=== PATIENT | female | born 1950 | race Caucasian/White ===

== ENCOUNTER 2019-07-19 13:52 | Outpatient (CLI) | payer OTHER, SELFPAY ==
--- NOTE | ~2019-07-19 | MM_ITS ---
EXAMINATION: MM screening [facility] BI w kelli HISTORY: Screening mammogram TECHNIQUE: Craniocaudal and mediolateral oblique 3-D tomosynthesis images were obtained and synthetic 2-D images were generated. CAD analysis was submitted and interpreted. COMPARISON: Comparison to multiple prior studies sequentially, with oldest reviewed study dated 01/23. BREAST PARENCHYMAL COMPOSITION: There are scattered areas of fibroglandular density. FINDINGS: There is no evidence of suspicious mass, calcification, or architectural distortion to sugg est malignancy in either breast. There has been no suspicious interval change. IMPRESSION: 1. No mammographic evidence of malignancy. 2. Recommend routine screening mammography in one year. BI-RADS Category 1: Negative Reviewed, dictated and finalized at location A.
== END 2019-07-19 13:53 | disposition home or self-care (01) ==
PROVIDERS: PCP Family Medicine; Visit Provider Obstetrics & Gynecology
DX: Z12.31 Encounter for screening mammogram for malignant neoplasm of breast (principal)
CPT/HCPCS: 77063; 77067

== ENCOUNTER 2020-07-23 09:40 | Outpatient (CLI) | payer OTHER, SELFPAY ==
--- NOTE | ~2020-07-23 | MM_ITS ---
EXAMINATION: MM screening [facility] BI w kelli HISTORY: Screening TECHNIQUE: Craniocaudal and mediolateral oblique 3-D tomosynthesis images were obtained and synthetic 2-D images were generated. CAD analysis was submitted and interpreted. COMPARISON: Comparison to multiple prior studies sequentially, with oldest reviewed study dated 01/23. BREAST PARENCHYMAL COMPOSITION: There are scattered areas of fibroglandular density. FINDINGS: There is no evidence of suspicious mass, calcification, or architectural distortion to sugg est malignancy in either breast. There has been no suspicious interval change. IMPRESSION: 1. No mammographic evidence of malignancy. 2. Recommend routine screening mammography in one year. BI-RADS Category 1: Negative Reviewed, dictated and finalized at location A.
== END 2020-07-23 09:41 | disposition home or self-care (01) ==
LOC: ANHIMG 09:46
PROVIDERS: PCP Family Medicine; Visit Provider Obstetrics & Gynecology
DX: Z12.31 Encounter for screening mammogram for malignant neoplasm of breast (principal)
CPT/HCPCS: 77063; 77067

== ENCOUNTER 2020-08-13 11:10 | Outpatient (CLI) | payer OTHER, SELFPAY ==
--- NOTE | ~2020-08-13 | DEXA_ITS ---
Bone Density Report Name: Ranjana Corey Age: 70 Sex: Female Ethnicity: White Date of : 1950 Indication: postmenopausal; seizure disorder; hysterectomy; Referring Provider: Steve, Alberta Rizo Study: Bone densitometry was performed. Exam Date: August 13, 2020 Accession number: [id number] Bone Density: Region BMD T-score Z-score Classification AP Spine (L1-L4) 0.954 -0.8 1.2 Normal Femoral Neck (Left) 0.629 -2.0 -0.3 Osteopenia Total Hip (Left) 0.784 -1.3 0.1 Osteopenia Total Hip Bilateral Avg 0.797 -1.2 0.2 Osteopenia Femoral Neck (Right) 0.622 -2.0 -0.3 Osteopenia Total Hip (Right) 0.808 -1.1 0.3 Osteopenia World Health Organization criteria for BMD impression classify patients as: Normal (T-score at or above -1.0), Osteopenia (T-score between -1.0 and -2.5), or Osteoporosis (T-score at or below -2.5). 10-year Fracture Risk(1): Major Osteoporotic Fracture 12% Hip Fracture 2.1% Reported Risk Factors: [place] (), Neck BMD=0.622, BMI=25.8 (1) FRAX(R) Version 3.08. Fracture probability calculated for an untreated patient. Fracture probability may be lower if the patient has received treatment. Clinical Information Provided by Patient: Has the following medical conditions: Any Seizure Disorders, Hysterectomy Patient maximum height was 68 Menopause Age: 52 Drinks caffeinated beverages Onset of menses at age 14 Number of children 1 Impression: The patient has low bone mass, based on the Left Femoral Neck T-score. The patient has an estimated ten-year risk of hip fracture of 2.1% and an estimated ten-year risk of major fracture of 12%, based on the WHO FRAX algorithm. Discussion: BONE DENSITY IS LOW AT ONE OR MORE SKELETAL SITES. This patient's lowest T-score is low at one or more skeletal sites. It meets the World Health Organization's (WHO) criteria for ?low bone mass? (T-score between -1.0 and -2.5). The patient's 10-year risk of fracture as calculated by FRAX is less than the threshold where pharmacological therapy is recommended by the National Osteoporosis Foundation (NOF). However, all treatment decisions require clinical judgment and consideration of individual patient factors, including patient preferences, comorbidities, previous drug use, risk factors not captured in the FRAX model (e.g., frailty, falls, vitamin D deficiency, increased bone turnover, interval significant decline in bone density) and possible under or overestimation of fracture risk by FRAX. The patient should follow a healthful lifestyle (good nutrition with adequate calcium and vitamin D, and appropriate weight-bearing exercise). Follow-Up: Consider repeating this study in 2 to 3 years to reassess this patient's status, or sooner if there is some new clinical indication. Reported by: OSCAR on 08/13/2020 11:
== END 2020-08-13 11:11 | disposition home or self-care (01) ==
LOC: ANHIMG 11:14
PROVIDERS: PCP Family Medicine; Visit Provider Physician Assistant
DX: Z78.0 Asymptomatic menopausal state (principal); M85.851 Other specified disorders of bone density and structure, right thigh; M85.852 Other specified disorders of bone density and structure, left thigh
CPT/HCPCS: 77080

== ENCOUNTER 2020-08-26 12:47 | Emergency (ER) | payer OTHER, SELFPAY ==
[2020-08-26 14:46] VITALS: BP 151/100; PULSE 89; RESP 18; TEMP 36.6; O2SAT 100
--- NOTE | 2020-08-26 16:31 | PC.NURSE ---
Dr. Dumont at bedside for exam.
--- NOTE | 2020-08-26 16:36 | PC.NURSE ---
Pt refuses CT, requests that staff hurry up, I have to get home to my . He's home alone and he's diabetic .
--- NOTE | 2020-08-26 16:45 | ED.HEATRA ---
HPI - Head Injury General Chief complaint: Head Injury Stated complaint: Fall/HI Time Seen by Provider: 08/26/20 16:13 Source: patient and RN notes reviewed Mode of arrival: ambulatory Limitations: no limitations History of Present Illness HPI Narrative: Patient tripped and fell at 7 AM today at home, complaining of forehead laceration, denied loss of consciousness or other injuries. Patient also declined to get CAT scan of the head, last tetanus shot was 3 years ago, and patient would like to fix her laceration and go home immediately. Related Data Allergies Allergy/AdvReac Type Severity Reaction Status Date / Time aspirin Allergy Severe GI UPSET, Verified 08/26/20 15:43 STOMACH ULCERATION erythromycin base Allergy Severe SWELLING Verified 08/26/20 15:43 Penicillins Allergy Severe ANAPHALACTI Verified 08/26/20 15:43 C Sulfa (Sulfonamide Allergy Severe ANAPHALACTI Verified 08/26/20 15:43 Antibiotics) C tramadol Allergy Severe SWELLING Verified 08/26/20 15:43 promethazine Allergy Unknown Unknown Verified 08/26/20 15:43 Beta-Blockers AdvReac Severe BP PROBLEMS Verified 08/26/20 15:43 (Beta-Adrenergic Bloc sumatriptan AdvReac Severe BP SPIKE Verified 08/26/20 15:43 CHLORPROMAZINE HCL Allergy Severe THROAT Uncoded 08/26/20 15:43 CLOSED DIHYDROERGOTAMINE MESYLATE Allergy Severe THROAT Uncoded 08/26/20 15:43 CLOSED HYDROCODONE BIT Allergy Severe HIVES Uncoded 07/08/20 15:12 KETOROLAC TROMETHAMINE Allergy Severe BP SPIKE Uncoded 07/08/20 15:12 METOCLOPRAMIDE HCL Allergy Severe GI UPSET Uncoded 07/08/20 15:12 ONDANSETRON HCL Allergy Severe ANAPHALATIC Uncoded 07/08/20 15:12 PENTAZOCINE LACTATE Allergy Severe THROAT Uncoded 07/08/20 15:12 SWELLING SUMATRIPTAN SUCCINATE Allergy Severe BP SPIKE Uncoded 06/06/20 09:02 Review of Systems Review of Systems: Narrative: CONSTITUTIONAL: Denies fever, chills, or sweats. EYES: Denies visual changes, redness, or discharge. ENT: Denies rhinorrhea, congestion, sore throat, or otalgia. CARDIOVASCULAR: Denies chest pain, palpitations, or edema. RESPIRATORY: Denies cough or dyspnea. GASTROINTESTINAL: Denies abdominal pain, nausea, vomiting, or diarrhea. GENITOURINARY: Denies dysuria or hematuria. SKIN: Denies rash or itching. MUSCULOSKELETAL: Denies back pain, joint pain, or myalgia. NEUROLOGIC: Denies headache, numbness, or weakness. PSYCHIATRIC: Denies anxiety or depression. [facility] Family History Family History Father Family history of premature coronary heart disease, Onset Age: 75 Patient's father is Mother Cerebrovascular accident, Onset Age: 75 Social History Social History Smoking status: Never smoker Second hand tobacco smoke exposure: No Alcohol intake: never Substance use: never Substance use type: does not use Gender identity (if verbalized by the patient): Female Exam Narrative: Exam Narrative: General appearance: Well-developed, well-nourished Skin: Normal color, 2.5 vertical laceration at the forehead. Subcutaneous, no active bleeding, Head: Normocephalic, forehead laceration Eyes: Clear conjunctiva ENT: Oropharynx normal, ears normal, nose normal Neck: Supple, nontender Chest and respiratory: Airway patent, no respiratory distress, no accessory muscle use Heart: Regular rate/rhythm Abdomen: Soft, nontender, no organomegaly, quiet bowel sounds Vascular: Normal peripheral pulses, normal capillary refill. Musculoskeletal: Normal range of motion, nontender back Neurologic: Alert and oriented ?3, TUBING MACHINE OPERATOR is normal as tested, no gross motor deficit
== END 2020-08-26 16:55 | disposition home or self-care (01) ==
PROVIDERS: Emergency Provider Emergency Medicine; PCP Family Medicine
DX: S01.81XA Laceration without foreign body of other part of head, initial encounter (principal); W19.XXXA Unspecified fall, initial encounter; Y92.009 Unspecified place in unspecified non-institutional (private) residence as the place of occurrence of the external cause
CPT/HCPCS: 12011; 99283

== ENCOUNTER → 2020-10-04 12:54 | Outpatient (CLI) | payer OTHER, SELFPAY ==
--- NOTE | ~2020-10-04 | XR_ITS ---
EXAMINATION:XR cervical spine 4-5V DATE: 10/04/2020 13:59 INDICATION: Neck pain TECHNIQUE: AP, lateral, lateral swimmers and odontoid views of the cervical spine are provided. COMPARISON: None FINDINGS: Alignment is normal. The odontoid is intact. No fracture is identified. The vertebral body heights are maintained. There is mild loss of intervertebral disc space height at C4-5. There is mode rate multilevel facet and uncovertebral joint osteoarthritis. Prevertebral soft tissues are normal. IMPRESSION: 1. Mild cervical spondylosis without acute findings. Reviewed, dictated and finalized at location B.
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
--- NOTE | ~2020-10-04 | XR_ITS ---
EXAMINATION: XR thoracic spine 3V DATE: 10/04/2020 13:59 INDICATION: Back pain TECHNIQUE: AP, lateral and lateral swimmer's views of the thoracic spine were obtained. COMPARISON: 01/23/2014 FINDINGS: Bone alignment is normal. There is no fracture. There is mild loss of intervertebral disc s pace height at multiple levels. Small degenerative osteophytes project from the anterior endplates of multiple vertebral bodies. IMPRESSION: 1. Mild thoracic spondylosis without acute findings or significant interval change. Reviewed, dictated and finalized at location B. IMPRESSION: 1. Mild thoracic spondylosis without acute findings or significant interval breanna nge.
== END ==
PROVIDERS: PCP Physician Assistant; Visit Provider Physician Assistant
DX: M47.813 Spondylosis without myelopathy or radiculopathy, cervicothoracic region (principal); M19.011 Primary osteoarthritis, right shoulder; M85.811 Other specified disorders of bone density and structure, right shoulder
CPT/HCPCS: 72050; 72072; 73030

== ENCOUNTER 2022-10-14 09:01 | Outpatient (CLI) | payer OTHER, SELFPAY ==
--- NOTE | 2022-10-14 10:30 | NEURO_ITS ---
Impression: # Complains of right upper extremity pain. # No Carpal Tunnel Syndrome or ulnar neuropathy. # Normal needle/EMG. # Clinical correlation recommended. Nerve Conduction Studies Anti Sensory Summary Table Stim Site NR Peak (ms) P-T Amp (?V) Site1 Site2 Delta-P (ms) Dist (cm) Darrian (m/s) Right Median Anti Sensory (2-3nd Digit) Wrist 2.6 23.1 Wrist 2-3nd Digit 2.6 14.0 54 Wrist 2.5 29.5 Wrist 2-3nd Digit 2.6 14.0 54 Right Radial Anti Sensory (Base 1st Digit) Wrist 2.6 18.7 Wrist Base 1st Digit 2.6 0.0 Right Ulnar Anti Sensory (5th Digit) Wrist 2.1 62.2 Wrist 5th Digit 2.1 14.0 67 Motor Summary Table Stim Site NR Onset (ms) O-P Amp (mV) Site1 Site2 Delta-0 (ms) Dist (cm) Darrian (m/s) Right Median Motor (Abd Poll Brev) Wrist 3.0 5.2 Elbow Wrist 5.5 32.0 58 Elbow 8.5 2.5 Right Ulnar Motor (Abd Dig Minimi) Wrist 2.7 4.4 A Elbow Wrist 5.2 32.0 62 A Elbow 7.9 3.3 F Wave Studies NR F-Lat (ms) L-R F-Lat (ms) Right Median (Mrkrs) (Abd Poll Brev) 26.94 Right Ulnar (Mrkrs) (Abd Dig Min) 27.49 EMG Side Muscle Nerve Root Ins Act Fibs Amp Dur Recrt Comment Right 1stDorInt Ulnar C8-T1 Nml Nml Nml Nml Nml Right Ext Indicis Radial (Post Int) C7-8 Nml Nml Nml Nml Nml Right Ext Digitorum Radial (Post Int) C7-8 Nml Nml Nml Nml Nml Right BrachioRad Radial C5-6 Nml Nml Nml Nml Nml Right PronatorTeres Median C6-7 Nml Nml Nml Nml Nml Right Abd Poll Brev Median C8-T1 Nml Nml Nml Nml Nml Right ABD Dig Min Ulnar C8-T1 Nml Nml Nml Nml Nml MTDD
== END 2022-10-14 09:02 | disposition home or self-care (01) ==
LOC: ANHNEURO 09:02
PROVIDERS: PCP Family Medicine; Visit Provider Orthopaedic Surgery
DX: G56.01 Carpal tunnel syndrome, right upper limb (principal)
CPT/HCPCS: 95886; 95909

== ENCOUNTER 2023-03-03 10:51 | Outpatient (CLI) | payer OTHER, SELFPAY ==
[2023-03-03 18:32] LABS: Influenza A QL RT-PCR Negative (Negative); Influenza B QL RT-PCR Negative (Negative); RSV RNA, RT-PCR Negative (Negative); SARS-CoV-2 RNA PCR Positive (Negative)
== END 2023-03-03 10:52 | disposition home or self-care (01) ==
PROVIDERS: PCP Family Medicine; Visit Provider Family Medicine
DX: J06.9 Acute upper respiratory infection, unspecified (principal); Z20.822 Contact with and (suspected) exposure to COVID-19
CPT/HCPCS: 87637

== ENCOUNTER 2024-06-15 07:10 | Outpatient (CLI) | payer OTHER, SELFPAY ==
--- NOTE | ~2024-06-15 | XR_ITS ---
EXAMINATION: XR chest 2V 06/15/2024 08:06 INDICATION: Chest pain PROCEDURE: 2 view chest COMPARISON: 01/23/2014 FINDINGS: The lungs are clear. The cardiomediastinal silhouette is within normal limits. There are no pleural effusions. There is no pneumothorax suspected. IMPRESSION: 1: NO ACUTE CARDIOPULMONARY DISEASE. Reviewed, dictated and finalized at location A.
--- OUTSIDE RECORDS SUMMARY | 2024-06-15 07:14 | XMS_ITS | Data Portability ---
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 She has carpal tunnel type symptoms and complaints. She has had this previously released however the symptoms have recurred now. I had previously did the carpal tunnel release on her left handed she has done well from that. She would like to consider release on the right hand she has constant numbness and tingling a positive Phalen's carpal compression test and numbness that is consistent and persistent. We will obtain an EMG to demonstrate this if positive she will require surgical release discussed. [email or web address] Not available 09/07/2022 09:15:10 10/20/2022 10/20/2022 Patient returns continued wrist pain. The only thing that really helps is a brace she wears a constantly. I did redo the left hand and that seemed to help the pain she would like me to try the right. She is well aware of the fact the EMG does not show any considerable compression however she remains symptomatic. We will try to release the carpal tunnel on the right see if it helps she is well aware the fact it may not I have discussed this with her risks benefits limitations and alternatives. However she is uncomfortable enough that she would like to try. [email or web address] Not available 10/20/2022 14:46:04 11/17/2022 11/17/2022 Patient returns status post carpal tunnel release left. Her incisions clean numbness and tingling of her better. I am very pleased with that as I told her before surgery 3. Would get better. Recommend she continue to use her hand gently I will see her back in 3 weeks for final follow-up if she has any changes or problems she will call discussed. [email or web address] Not available 11/17/2022 15:45:02 Plan of Treatment Reminders Order Date Submit Date Provider Last Modified By Organization Details Last Modified Time Details Appointments None recorded. Lab None recorded. Referral None recorded. Procedures None recorded. Surgeries None recorded. Imaging electromyog patrice + nerve conduction study - patient will call to schedule 2022 023 [facility] (Cardiology & Emg), [address], [place], [address], 3 15:40:14 XR, wrist 2022 023 [email or web address] [facility] [place], [address], [place], [address], 3 11:50:50 Medication Orders None recorded. Patient TargetsNo targets recorded. Patient InstructionsNo instructions recorded. Reason for Referral None Reported. Results Created Date Observation Date Name Description Value Unit Range Abnormal Flag Note LastModifiedBy Organization Detail LastModifiedTime 12/12/19 21 MRI, shoul fausto, w/o contr ast [facility] [address] [place] [address] [phone] Patien t Name: RANJANA COREY ion #: [id number] Sex: F : 1949 Locati on: IND Attend ing Physic nick: Nunui janice Physic nick: MARK PATINO Exam Date: 2020 9:09 AM Exam Name: MRI SHOULD ER RT WO Admitt ing Diagno sis(es ): RADIOL OGY REPORT - FINAL EXAM: MRI SHOULD ER RT WO HISTOR Y: pain COMPAR JOJO: None Availa ble. TECHNI QUE: Multip lanar multis equenc e imagin g of the right should er is perfor med withou t intrav enous contra st. FINDIN GS: Osseou s:Christen fact relate d to prior RTC surger y Joint space: Fluid is noted within the subdel toid recess and the subacr omial space. Page 1 of 2 [facility] Patien t Name: RANJANA COREY ion #: [id number] Sex: F : 1949 Exam Date: 2020 9:09 AM Exam Name: MRI SHOULD ER RT WO Admitt ing Diagno sis(es ): Labrum :Gross ly intact AC-kareem nt:Mil d AC joint hypert rophy Rotato r cuff:A rtifac t relate d to RT see surgic al residu als. Supras pinatu s tendin osis, no eviden ce of a partia l or full-t hickne ss tear of the rotato r cuff compon ents. Bicipi jessica labral tendon :Incom pletel y evalua darwin IMPRES JARON: See above. Create d and electr onical ly signed by: Rodo valera MD Signed Date: 2020 11:38 AM (CT) Dictat ed by: Rodo valera MD DD: 2020 11:38 AM (CT) DT: 2020 11:38 AM (CT) Page 2 of 2 [id number] [facility] (Imaging) [address] [place], [address], 04/22/2022 12:49:20 12/13/19 21 12/11/2020 MRI, shoul fausto, w/o contr ast No observ ation record ed. [id number] [facility] [address], [place], [address], 04/22/2022 12:49:20 09/08/19 23 XR, wrist No observ ation record ed. odalys [facility] [place] [address], [place], [address], 09/07/2022 09:16:46 10/15/19 23 10/14/2022 elect romyo gram + nerve condu ction study No observ ation record ed. [facility] [address], [place], [address], 10/14/2022 15:43:43 Result Notes None recorded. Problems Name Problem SNOMED Code Status Onset Date Resolution Date Notes Provider Name and Address Organization Details Recorded Time Acute tear of meniscus of right knee 4172038492902 9107 Active 2019 Not Available [facility] 3 12:46:36 Knee joint effusion 603096451 Active Not Available [facility] 3 12:46:36 Partial thickness rotator cuff tear 644516905 Active 2020 Not Available [facility] 3 12:46:37 Osteoarthr itis of knee 998970366 Active Not Available [facility] 3 12:46:37 Tear of medial meniscus of knee 828841791 Active 2019 Not Available [facility] 3 12:46:37 Tear of lateral meniscus of knee 034346456 Active 2019 Not Available [facility] 3 12:46:37 Current tear of medial cartilage AND/OR meniscus of knee Active Not Available [facility] 3 12:46:37 Current tear of lateral cartilage AND/OR meniscus of knee Active Not Available [facility] 3 12:46:37 Knee pain Active Not Available [facility] 3 12:46:37 Derangemen t of knee 69642782 Active Not Available [facility] 3 12:46:37 Pain in limb 51511071 Active Not Available [facility] 3 12:46:37 Pain of right wrist 7917410443293 00 Active 2022 MARIE August, [place] [facility] 3 08:59:44 Carpal tunnel syndrome of right wrist 4182743615153 08 Active 2022 Daina esquivel, [facility] 3 09:10:43 Problem Notes None recorded. Procedures Surgical History None recorded. Imaging Results Imaging Date Name Status LastModified by Organization Details LastModified Time 12/11/2020 MRI, shoulder, w/o contrast completed [id number] [facility] [address], [place], [address], 04/22/2022 12:49:20 12/11/2020 MRI, shoulder, w/o contrast completed [id number] [facility] (Imaging) [address] [place], [address], 04/22/2022 12:49:20 09/07/2022 XR, wrist completed [email or web address] [facility] [place] [address] [facility] [address], [place], [address], 09/07/2022 09:16:46 10/14/2022 electromyogram + nerve conduction study completed [address], [place], [address], 10/14/2022 15:43:43 Procedure Notes None recorded. Medical Equipment None Reported. Allergies Allergen ID Allergen Name Allergen Category Reaction Reaction Severity Criticality Documentation Date Start Date Code Code System Note Provider Name and Address Organization Details Recorded Time 33106 acetamino phen / hydrocodo ne medicatio n Not available Not available Not available 04/22/2022 69373 2 RxNorm Not Available [facility] 3 12:49:16 22361 tramadol medicatio n Not available Not available Not available 04/22/2022 38108 RxNorm Not Available [facility] 3 12:49:16 04739 Toradol medicatio n Not available Not available Not available 04/22/2022 44735 RxNorm Not Available [facility] 3 12:49:16 97388 chlorprom azine hydrochlo ride medicatio n Not available Not available Not available 04/22/2022 28261 8 RxNorm Not Available [facility] 3 12:49:16 65593 Talwin medicatio n Not available Not available Not available 04/22/2022 8002 RxNorm Not Available [facility] 3 12:49:16 31418 Substance with sulfonami de structure and antibacte rial mechanism of action (substanc e) medicatio n Not available Not available Not available 04/22/2022 60666 8003 SNOMED Not Available [facility] 3 12:49:16 66097 Reglan medicatio n Not available Not available Not available 04/22/2022 9230 RxNorm Not Available [facility] 3 12:49:16 91319 Product containin g penicilli n (product) medicatio n Not available Not available Not available 04/22/2022 60327 8001 SNOMED Not Available [facility] 3 12:49:16 80063 morphine medicatio n Not available Not available Not available 04/22/2022 7052 RxNorm Not Available [facility] 3 12:49:16 69917 Imitrex medicatio n Not available Not available Not available 04/22/2022 64874 3 RxNorm Not Available [facility] 3 12:49:16 59123 E-Mycin medicatio n Not available Not available Not available 04/22/2022 34076 8 RxNorm Not Available [facility] 3 12:49:16 22358 prasteron e medicatio n Not available Not available Not available 04/22/2022 3143 RxNorm Not Available [facility] 3 12:49:16 95173 Compazine medicatio n Not available Not available Not available 04/22/2022 20543 6 RxNorm Not Available [facility] 3 12:49:16 23902 Product containin g beta adrenergi c receptor antagonis t (product) medicatio n Not available Not available Not available 04/22/2022 42623 009 SNOMED Not Available [facility] 3 12:49:16 11525 aspirin medicatio n Not available Not available Not available 04/22/2022 1191 RxNorm Not Available [facility] 3 12:49:16 Medications Name Sig Start Date Stop Date Status Note LastModified by Organization Details LastModified Time cyclobenzap rine 10 mg tablet TAKE 1 TABLET BY MOUTH ONCE EVERY NIGHT AT BEDTIME 09/07 completed Not Available Not Available Not Available butorphanol 10 mg/mL nasal spray PLEASE SEE ATTACHED FOR DETAILED DIRECTION S 09/07 completed Not Available Not Available Not Available prednisone 10 mg tablet TAKE 1 TAB BY MOUTH 3 TIMES A DAY X 3 DAYS THEN 1 TAB 2 TIMES A DAY X 2 DAYS THEN 1 TAB ONCE X 1 DAY 09/07 completed Not Available Not Available Not Available doxycycline hyclate 100 mg capsule 09/07 completed Not Available Not Available Not Available atorvastati n 10 mg tablet 10/08 completed Not Available Not Available Not Available Pneumovax-2 3 25 mcg/0.5 mL injection solution 10/08 completed Not Available Not Available Not Available lisinopril 20 mg-hydrochl orothiazide 12.5 mg tablet 11/19 completed Not Available Not Available Not Available ofloxacin 0.3 % eye drops PLEASE SEE ATTACHED FOR DETAILED DIRECTION S 09/07 completed Not Available Not Available Not Available tizanidine 4 mg tablet TAKE 1 TABLET BY MOUTH EVERY DAY AT BEDTIME 09/07 completed Not Available Not Available Not Available benzonatate 200 mg capsule TAKE ONE CAPSULE BY MOUTH THREE TIMES A DAY NEEDED FOR COUGH 09/07 completed Not Available Not Available Not Available valacyclovi r 1 gram tablet 10/09 completed Not Available Not Available Not Available hydrocodone 5 mg-acetamin ophen 325 mg tablet TAKE 1 TABLET BY MOUTH EVERY 6 (SIX) HOURS NEEDED FOR PAIN FOR UP TO 5 DAYS 11/07 completed Not Available Not Available Not Available lisinopril 20 mg tablet TAKE 1 TABLET BY MOUTH EVERY DAY 09/07 completed Not Available Not Available Not Available clindamycin HCl 150 mg capsule 10/08 completed Not Available Not Available Not Available topiramate 25 mg tablet TAKE 1 TABLET BY MOUTH TWICE DAILY 09/07 completed Not Available Not Available Not Available acetaminoph en 300 mg-codeine 30 mg tablet TAKE 1 TABLET BY MOUTH EVERY 6 HOURS active Not Available Not Available No t Available ciprofloxac in 500 mg tablet TAKE 1 TABLET BY MOUTH TWICE A DAY FOR 7 DAYS 11/07 completed Not Available Not Available Not Available oxycodone 15 mg tablet 11/19 completed Not Available Not Available Not Available ketorolac 0.5 % eye drops PLEASE SEE ATTACHED FOR DETAILED DIRECTION S 09/07 completed Not Available Not Available Not Available prednisone 10 mg tablets in a dose pack Take 1 tab by mouth, 3 times a day for 3 daysTake 1 tab by mouth 2 times a day for 2 daysTake 1 tab by mouth once a day for 1 day 09/07 completed Not Available Not Available Not Available propranolol 10 mg tablet TAKE 1 TABLET BY MOUTH EVERY 12 HOURS 09/07 completed Not Available Not Available Not Available prednisolon e acetate 1 % eye drops,suspe nsion INSTILL 1 DROP IN SURGICAL EYE 3 TIMES DAILY STARTING AFTER SURGERY, CONTINUIN G FOR 3 WEEKS. 09/07 completed Not Available Not Available Not Available Kenalog 10 mg/mL suspension for injection In office injection administe red by the provider 09/07 completed [facility]: 0003- 0494- 20 Not Available Not Available Not Available cephalexin 500 mg capsule 11/05 completed Not Available Not Available Not Available dexamethaso ne 4 mg tablet TAKE 1 TABLET BY MOUTH EVERY DAY FOR 5 DAYS 11/07 completed Not Available Not Available Not Available lisinopril 10 mg tablet TAKE 1 TABLET BY MOUTH EVERY DAY 09/07 completed Not Available Not Available Not Available lisinopril 30 mg tablet 09/07 completed Not Available Not Available Not Available gabapentin 100 mg capsule 11/19 completed Not Available Not Available Not Available levofloxaci n 500 mg tablet 10/08 completed Not Available Not Available Not Available methylpredn isolone 4 mg tablets in a dose pack TAKE 6 TABLETS ON DAY 1 DIRECTED ON PACKAGE AND DECREASE BY 1 TAB EACH DAY FOR A TOTAL OF 6 DAYS 09/07 completed Not Available Not Available Not Available lisinopril 40 mg tablet TAKE 1 TABLET BY MOUTH EVERY DAY active Not Available Not Available No t Available fluticasone propionate 50 mcg/actuati on nasal spray,suspe nsion SPRAY 1 SPRAY INTO EACH NOSTRIL DAILY 09/07 completed Not Available Not Available Not Available Pneumovax-2 3 25 mcg/0.5 mL injection syringe 10/09 completed Not Available Not Available Not Available escitalopra m 10 mg tablet 09/07 completed Not Available Not Available Not Available duloxetine 30 mg capsule,del ayed release TAKE 1 CAPSULE BY MOUTH EVERY DAY 09/07 completed Not Available Not Available Not Available lidocaine (PF) 10 mg/mL (1 %) injection solution In office injection administe red by the provider 09/07 completed [facility]: 0409- 4276- 17 Not Available Not Available Not Available Zostavax (PF) 19,400 unit/0.65 mL subcutaneou s suspension 10/08 completed Not Available Not Available Not Available hydrochloro thiazide 12.5 mg tablet TAKE 1 TABLET BY MOUTH EVERY DAY 09/07 completed Not Available Not Available Not Available Prevnar 13 (PF) 0.5 mL intramuscul ar syringe 10/08 completed Not Available Not Available Not Available Flulaval 9750-8153 45 mcg (15 mcg x 3)/0.5 mL intramuscul ar suspension 10/08 completed Not Available Not Available Not Available Fluvirin 4372-7389 45 mcg (15 mcg x 3)/0.5 mL intramuscul ar suspension 10/08 completed Not Available Not Available Not Available Fluzone Quad 7209-7748 60 mcg (15 mcg x 4)/0.5 mL IM suspension 10/08 completed Not Available Not Available Not Available Shingrix (PF) 50 mcg/0.5 mL intramuscul ar suspension, kit 11/07 completed Not Available Not Available Not Available Fluad 2018- 65yr up(PF)45 mcg(15 mcgx3)/0.5 mL intramuscul ar syringe 11/07 completed Not Available Not Available Not Available Fluzone High-Dose Quad (PF) 240 mcg/0.7 mL IM syringe TO BE ADMINISTE RED BY PHARMACIS T FOR IMMUNIZAT ION active Not Available Not Available No t Available Vitals Date Recorded Body mass index (BMI) Body height Body weight Provider Name and Address Organization Details Last Updated DateTime 12/26/2020 24 kg/m2 173.99 cm 18854.78 g Not Available [facility] 04/22/2022 12:46:02 Date Recorded Body mass index (BMI) Body height Pain severity - 0-10 verbal numeric rating [Score] - Reported Body weight Provider Name and Address Organization Details Last Updated DateTime 01/09/2021 22.5 kg/m2 173.99 cm 0 66859.86 g Not Available [facility] 04/22/2022 12:46:02 Date Recorded Body height Body mass index (BMI) Body weight Provider Name and Address Organization Details Last Updated DateTime 09/07/2022 172.72 cm 24.3 kg/m2 11637.78 g Nani Germán [facility] 09/07/2022 08:57:08 Date Recorded Body height Body mass index (BMI) Body weight Provider Name and Address Organization Details Last Updated DateTime 10/20/2022 173.99 cm 24 kg/m2 67467.78 g ElizabethYASMEEN [facility] 10/20/2022 14:21:49 Date Recorded Body height Body mass index (BMI) Body weight Provider Name and Address Organization Details Last Updated DateTime 11/17/2022 173.99 cm 24 kg/m2 71083.78 g [facility] 11/17/2022 15:32:31 Social History Question Answer Notes LastModified by [employer] ion Details LastModified Time Tobacco Smoking Status Unknown If Ever Smoked Not Available [facility] 04/22/2022 12:45:44 What Is Your Level Of Alcohol Consumption? None [id number] Information not available 04/22/2022 What Was The Date Of Your Most Recent Tobacco Screening? 11/07/2020 [id number] 26 Information not available 04/22/2022 Sex: Unknown Functional Status None recorded. Mental Status None recorded. Family History Relationship Description Onset Age of this Age Resolved Age Notes LastModified by Organization Details LastModified Time Maternal Aunt Family history of malignant neoplasm [id number] Not available 04/22/2022 12:45:48 Medical History Condition Response ULCERS Y Gynecological HistoryNo gynecological history recorded. Obstetrics History GPAL:G 0 P 0 0 0 0 Past Encounters Encounter ID Performer Location Encounter Start Date Encounter Closed Date Diagnosis/Indication Diagnosis SNOMED-CT Code Diagnosis ICD10 Code Diagnosis Note [id number] [facility] [address] [place] [address] 11/07/2020 00:00:00 11/07/2020 13:37:27 [id number] [facility] [place] [address] [place] [address] 12/05/2020 00:00:00 12/05/2020 10:29:12 [id number] [facility] [place] [address] [place] [address] 12/26/2020 00:00:00 12/26/2020 13:48:31 [id number] [facility] [place] [address] [place] [address] 01/09/2021 00:00:00 01/09/2021 11:45:18 [id number] Mark Gustafson MD [facility] [place] [address] [place] [address] 09/07/2022 08:48:18 09/07/2022 09:31:52 Pain of right wrist 2607589624 15576 M25.531 Carpal catarino eleonora syndrome of right wrist 4979055030 10465 G56.01 [id number] Mark Gustafson MD [facility] [place] [address] [place] [address] 10/20/2022 14:15:57 10/20/2022 15:03:38 Pain of right wrist 8688844508 63316 M25.531 Carpal catarino eleonora syndrome of right wrist 8961796230 54777 G56.01 [id number] Mark Gustafson MD [facility] [place] [address] [place] [address] 11/17/2022 15:29:57 11/17/2022 15:55:26 Carpal tunnel syndrome of right wrist 6407346056 43715 G56.01 Health Concerns Section Related Observation LastModified by Organization Detai ls LastModified Time None Recorded Concern Status LastModified by Organization Details LastModified Time None Recorded Advance Directives Directive None Recorded Payers Encounter Date Sequence Insurance Name Policy Number Policy Jo Covered Member ID Jo Member ID Guarantor Name 09/07/2022 1 [facility] (MEDICARE REPLACEMENT HMO) [id number] Ranjana Corey [id number] Ranjana Corey 10/20/2022 1 [facility] (MEDICARE REPLACEMENT HMO) [id number] Ranjana Corey [id number] Ranjana Corey 11/17/2022 1 [facility] (MEDICARE REPLACEMENT HMO) [id number] Ranjana Corey [id number] Ranjana Corey Notes Date Note Type Note Provider Name and Address Organization Details Recorded Time 12/26/2020 text/html ShoulderReported bypatient.Location:an terior; lateral Quality:throbbing; frequent Severity:moderate Timing:recurrent; occasional Duration:continuous since onset Aggravating Factors:pushing/pulli ng; throwing; damp weather Alleviating Factors:rest; elevation; stretching; NSAIDs Associated Symptoms:no weakness; no numbness; no tingling; no redness; no ecchymosis; no catching/locking; no popping/clicking; no buckling; no grinding; no instability; no radiation down arm; no drainage; no fever; no chills; no weight loss; no change in bowel/bladder habits;swelling;warmt h Not Available [facility] 12/26/2020 13:48:31 01/09/2021 text/html ShoulderReported bypatient.Location:an terior; lateral Quality:throbbing; frequent Severity:moderate Timing:recurrent; occasional Duration:continuous since onset Aggravating Factors:pushing/pulli ng; throwing; damp weather Alleviating Factors:rest; elevation; stretching; NSAIDs Associated Symptoms:no weakness; no numbness; no tingling; no redness; no ecchymosis; no catching/locking; no popping/clicking; no buckling; no grinding; no instability; no radiation down arm; no drainage; no fever; no chills; no weight loss; no change in bowel/bladder habits;swelling;warmt h Not Available [facility] 01/09/2021 11:45:18 09/07/2022 text/html Patient returns carpal tunnel complaints on RIGHT. I previously redid her LEFT carpal tunnel release, and that has done well. Now she has symptoms on the rightas well. She previously had carpal tunnels done in the . Mark Gustafson MD [address], [place], [address], [facility] 09/07/2022 09:17:37 10/20/2022 text/html Patient returns carpal tunnel complaints right. The rim she remains symptomatic. The EMG does not show significant nerve compression although she had similar findings on her left hand which I redid, and it seemed to help with the pain. Mark Gustafson MD [address], [place], [address], [facility] 10/20/2022 14:46:24 11/17/2022 text/html Patient returns status post carpal tunnel release right. This was a reduce I told her before surgery that I can not guarantee it is going to get better. Fortunately she seems to be doing better and less numbness and tingling less pain. Mark Gustafson MD [address], [place], [address], [facility] 11/17/2022 15:45:19 OBGyn Episode No OBEpisode recorded.
--- OUTSIDE RECORDS SUMMARY | 2024-06-15 07:14 | XMS_ITS | CONTINUITY OF CARE DOCUMENT ---
Author Name theresekeylaludmila Address Unknown Organization [facility] Address [address] [place] [address] [address] [place] [address] Phone [phone] Care Team Providers Care [employer] Name Role Phone James MARAVILLA, Candace Unavailable GURDEEP ROLDAN Unavailable [phone] RUI MARAVILLA, YAMINI F Unavailable INSURANCE PROVIDERS Payer name Policy type / Coverage type [place] [employer] party ID [place] [employer] Medicare [id number]
--- OUTSIDE RECORDS SUMMARY | 2024-06-15 07:14 | XMS_ITS | Continuity of Care Document ---
Author Organization [facility] Address [id number] [place] [address] [address] [place] [address] Phone Care Team Providers Care Decorator Hand Name Role Phone Nida, Lemuel Unavailable Unavailable Advance Directives Directive Yes / No Effective Date File Name No Information Encounters Encounter Description Practice Location Reason(s) For Visit Diagnoses Date Provider Providers Copied on Encounter [facility], [address], [place], [place], [id number], [place] tel:[phone] [facility] No Information 4-200 4 Doisy Edward. [address] , [address], [place], [address], [place]. tel:[phone] Family History Family Member Type Diagnosis Age At Onset No Information Payers Payer name Insurance type Covered constitution party ID Authoriza tion(s) No Information Social [...]
--- OUTSIDE RECORDS SUMMARY | 2024-06-15 07:14 | XMS_ITS | Continuity of Care Document ---
Author Organization [facility] Address [address] [place] [address] Phone Care Team Providers Care Funeral Arranger Name Role Phone Marco Antonio Art MD Unavailable Unavailable Allergies, Adverse Reactions, Alerts [...] on Encounter Independent Medical Examination [facility], [address], [id number], tel:[phone] [facility] right knee (chief complaint) Pain in right knee 0 Rubens Bernard. [address], [id number] , [place]. tel: [phone] [facility], [address] [place] [address], [id number], [place] tel:[phone] [facility] No Information 0 Rubens Bernard. [address] [place] [address], [id number] , . tel:[phone] Family History Family Member Type Diagnosis Age At Onset Mother Problem (finding) Seizures Payers Payer name Insurance type Covered democrat ID Kathie goodson(s) [employer] [id number] Social History Type Description Quantity Date Captured [...] knee pain. On 06/30/19, while working for [employer], she was outside and the knee twisted, [...] Type Action Status Referral Ordered: X-ray exam both knees, standing ordered Referral Ordered: X-ray exam knee, 1 or 2 views RT knee ordered History Of Present Illness Encounter Date Complaint History Of Prese nt Illness right knee Ranjana presents to the office with medial and lateral right knee pain. On 06/30/19, while working for [employer], she was outside and the knee twisted, [...]
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
--- OUTSIDE RECORDS SUMMARY | 2024-06-15 07:14 | XMS_ITS | Clinical Summary ---
Author Organization [place] [facility] Address [address] [place] [address] Care Team Providers Care Space Physicist Name Role Phone Alberta Everett Primary Care Provider [phone]- [phone] Allergies Active Allergy Reactions Criticality Noted Date [...] 04/16/2021 Assessment & Plan (04/16/2021 2:10 PM FREEZER LABORATORY TECHNICIAN): Patient declines the advised covid test at this time. She will increase fluids, use tylenol 500mg q6h prn fever/headache. She will report to the office if symptoms are not improving or if they worsen over the coming 72h. TMJ (temporomandibular joint disorder) Assessment & Plan (01/23/2021 2:35 PM FREEZER LABORATORY TECHNICIAN): Patient cannot take nsaids. Will try mdp for assistance. We discussed referral to ent/dentist pending response. She does not having funding for dentures, which we discussed would benefit her condition. Otalgia, left 01/09/2021 Assessment & Plan (01/23/2021 2:35 PM FREEZER LABORATORY TECHNICIAN): We discussed this is likely secondary to TMJ. Discussed ENT referral if no improvement in symptoms. Assessment & Plan (01/09/2021 8:17 AM FREEZER LABORATORY TECHNICIAN): Start on doxycycline x 10 days Advised [...] 120-130/80s. Assessment & Plan (01/23/2021 2:35 PM FREEZER LABORATORY TECHNICIAN): Add hctz daily Advised goal 120-130/80 Advised [...] with xrays. She plans to go to [facility] in [place]. Start PT. She can schedule now and then will need to let the office know where so an [facility] referral can be sent. Provided names of locations in [place] per her request. Tylenol or prn NSAIDs. [...] improving and sooner if worsening Will retrieve [facility] er records for review She declines xray/ct [...] 07/03/2020 Assessment & Plan (01/23/2021 2:36 PM FREEZER LABORATORY TECHNICIAN): Weight/bmi in healthy range Assessment & Plan [...] is going to schedule appt with her sales account leader. Gastroesophageal reflux disease 07/03/2020 Assessment & Plan [...] as available Retrieve records from previous pcp, sales account leader Acute cystitis without hematuria 07/03/2020 01/23/2021 Assessment [...] 11/22/2016 ZOSTER LIVE 03/14/2013 ZOSTER Recombinant 10/27/2019 Surgical History Surgery Date Site/Laterality Comments APPENDECTOMY GALLBLADDER SURGERY SECTION HYSTERECTOMY CARPAL TUNNEL RELEASE KNEE SURGERY SHOULDER SURGERY Bilateral Medical History Medical History Date Comments Seizures (HCC) Arthritis HTN (hypertension) Hyperlipidemia Osteopenia TBI (traumatic brain injury) (HCC) S/P ELY (total abdominal hysterectomy) Family History Medical History Relation Name Comments No Known Problems Father No Known Problems Mother Relation Name Status Comments Father Mother Social History Tobacco Use Types Packs/Day Years [...] on file Legal Sex Female 6:58 PM FREEZER LABORATORY TECHNICIAN Gender Identity Not on file Sexual Orientation Not on file 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 [employer] Not on file Not on file Not on file Obstetrics History Last Filed Vital Signs Vital Sign Reading Time Taken Comments Blood Pressure 132/96 09/29/2021 1:57 PM CDT Pulse 85 09/29/2021 1:57 PM CDT Temperature 36.8 C (98.2 F) 09/29/2021 1:57 PM CDT Respiratory Rate 18 01/23/2021 8:52 AM FREEZER LABORATORY TECHNICIAN Oxygen Saturation 98% 09/29/2021 1:57 PM CDT Inhaled Oxygen Concentration - - Weight 81.6 kg (180 lb) 09/29/2021 1:57 PM CDT Height 170.2 cm (5' 7 ) 09/29/2021 1:57 PM CDT Body Mass Index 28.19 09/29/2021 1:57 PM CDT Plan of Treatment Health Maintenance Due Date Last Done Comments Colon Cancer Screening-Colonoscopy 1950 Hepatitis C Screening 1950 Hepatitis B Screening 01/06/1970 Well Visit 65+ 01/06/2017 Pneumococcal vaccine 65+ (2 of 2 - PPSV23) 01/11/2018 01/11/2017, 06/21/2014 Zoster Vaccine (3 of 3) 12/22/2019 10/27/2019, 03/14 Breast Cancer Screening-Mammogram 07/18/2020 020 Osteoporosis Screening-Bone Density Scan 08/13/2022 08/13/2020 Depression Screening 09/29/2022 09/29/2021, 01/23/2021, 11/26/2020, Additional history exists Fall Risk Assessment 09/29/2022 09/29/2021, 01/23/2021, 10/08/2020, Additional history exists Covid-19 Vaccine (3 - 2023-2 5 season) 2023 05/17/2020, 04/19/2020 Influenza Vaccine (#1) 2023 , 11/23/2019, 11/02/2016 DTaP/Tdap/Td Vaccine (2 - Td or Tdap) 11/22/2026 11/22/2016 Procedures Procedure Name Priority Date/Time Associated Diagnosis Comments DEXA AXIAL SKELETON BONE DENSITY 1 OR MORE SITES Schedule Routine, Read Routine (OP Routine) 08/13/2020 Menopause MAMMOGRAPHY Routine 07/19/2019 from Last 3 Months or Most Recently Relevant to Health Maintenance Results * Dexa Axial Skeleton Bone Density 1 or 2 Site (08/13/2020) SCRIBED DXA T-SCORE -2.0 SCRIBED DXA Z-SCORE -0.3 SCRIBED DXA BMD 0.954 Anatomical Region Laterality Modality Body N/A Radiographic Toyin ging 08/13/2020 us Alberta SCHULZ IMG DXA PROCEDURES Edited Result - Final * MAMMOGRAPHY (07/19/2019) Historical Provider HEALTH MAINTENANCE Final Result from Last 3 Months or Most Recently Relevant to Health Maintenance [place] [address] [place] [address] Care Teams Space Physicist Relationship Specialty Start Date End Date Alberta Everett PA PCP - General Composite Engineer 06/06/20
[2024-06-15 07:37] LABS: Hematocrit 38.3 % (37.0-47.0); Hemoglobin 12.4 g/dL (12.0-15.0); Mean Corpuscular HGB Conc 32.4 g/dl (32-36); Mean Corpuscular Hemoglobin 31.4 pg (26-34); Mean Platelet Volume 9.1 fl (7.4-10.4); Platelet Count Result 254 k/mm3 (150-375); Red Blood Count 3.95 M/mm3 (4.2-5.4); Red Cell Distribution Width 13.2 % (11.5-14.5); White Blood Count 5.9 K/mm3 (4.5-10.0)
--- NOTE | 2024-06-15 07:45 | ECG_ITS ---
Test Date: 2024-06-15 07:51:48 Measurements Intervals [place] Rate: 65 P: 71 OR: 164 QRS: 13 QRSD: 100 T: 19 QT: 414 QTc: 432 Interpretive Statements SINUS RHYTHM LOW QRS VOLTAGE IN PRECORDIAL LEADS CONSIDER INFERIOR INFARCT, AGE INDETERMINATE BASELINE ARTIFACT- III, V3-V4 ABNORMAL ECG No previous ECG available for comparison Electronically Signed On 06-15-2024 07:57:53 CDT by Praveen Sharp D.O.
[2024-06-15 07:53] LABS: Alanine Aminotransferase 14 U/L (6-35); Alkaline Phosphatase 82 U/L (38-126); Anion Gap 7 mmol/L (4-12); Aspartate Amino Transferase 17 U/L (14-36); Bilirubin,Total 0.5 mg/dL (0.2-1.3); Blood Urea Nitrogen 17 mg/dL (7-17); Calcium 8.6 mg/dL (8.4-10.2); Carbon Dioxide 23 mmol/L (22-30); Chloride 108 mmol/L (98-107); Cholesterol 192 mg/dL (0-200); Estimated Glomerular Filt Rate > 60; Glucose 103 mg/dL (65-110); HDL Direct 40 mg/dL; Potassium 3.9 mmol/L (3.4-5.0); Sodium 138 mmol/L (137-145); Triglycerides 94 mg/dL (<150)
[2024-06-15 08:04] LABS: LDL Cholesterol Direct 121 mg/dL
== END 2024-06-15 07:11 | disposition home or self-care (01) ==
PROVIDERS: PCP Family Medicine; Visit Provider Family Medicine
DX: R94.31 Abnormal electrocardiogram [ECG] [EKG] (principal); E78.1 Pure hyperglyceridemia; I10 Essential (primary) hypertension; R07.89 Other chest pain; Z13.220 Encounter for screening for lipoid disorders
CPT/HCPCS: 36415; 71046; 80048; 80061; 80076; 82607; 84443; 85027; 93005

== ENCOUNTER 2024-07-10 10:38 | Outpatient (CLI) | payer OTHER, SELFPAY ==
--- NOTE | ~2024-07-10 | MM_ITS ---
EXAMINATION: MM screening rashmi BI w kelli HISTORY: Screening TECHNIQUE: Craniocaudal and mediolateral oblique 3-D tomosynthesis images were obtained and synthetic 2-D images were generated. CAD analysis was submitted and interpreted. COMPARISON: Comparison to multiple prior studies sequentially, with oldest reviewed study dated 05/21. BREAST PARENCHYMAL COMPOSITION: Not dense: There are scattered areas of fibroglandular density. FINDINGS: There is no evidence of suspicious mass, calcification, or architectural distortion to sugg est malignancy in either breast. There has been no suspicious interval change. IMPRESSION: 1. No mammographic evidence of malignancy. 2. Recommend routine screening mammography in one year. BI-RADS Category 1: Negative Reviewed, dictated and finalized at location B.
--- OUTSIDE RECORDS SUMMARY | 2024-07-10 11:09 | XMS_ITS | Clinical Summary ---
Author Organization [place] 1218[address] [facility] Address [address] [place] [address] Care Team Providers Care Absorption Plant Operator Name Role Phone Alberta Everett Primary Care Provider [phone] Allergies Active Allergy Reactions Criticality Noted Date [...] 04/16/2021 Assessment & Plan (04/16/2021 2:10 PM ACID CONDITIONING WORKER): Patient declines the advised covid test at this time. She will increase fluids, use tylenol 500mg q6h prn fever/headache. She will report to the office if symptoms are not improving or if they worsen over the coming 72h. TMJ (temporomandibular joint disorder) Assessment & Plan (01/23/2021 2:35 PM ACID CONDITIONING WORKER): Patient cannot take nsaids. Will try mdp for assistance. We discussed referral to ent/dentist pending response. She does not having funding for dentures, which we discussed would benefit her condition. Otalgia, left 01/09/2021 Assessment & Plan (01/23/2021 2:35 PM ACID CONDITIONING WORKER): We discussed this is likely secondary to TMJ. Discussed ENT referral if no improvement in symptoms. Assessment & Plan (01/09/2021 8:17 AM ACID CONDITIONING WORKER): Start on doxycycline x 10 days Advised [...] 120-130/80s. Assessment & Plan (01/23/2021 2:35 PM ACID CONDITIONING WORKER): Add hctz daily Advised goal 120-130/80 Advised [...] with xrays. She plans to go to [facility] in [place]. Start PT. She can schedule now and then will need to let the office know where so an [facility] referral can be sent. Provided names of locations in [place] per her request. Tylenol or prn NSAIDs. [...] improving and sooner if worsening Will retrieve [facility] records for review She declines xray/ct [...] 07/03/2020 Assessment & Plan (01/23/2021 2:36 PM ACID CONDITIONING WORKER): Weight/bmi in healthy range Assessment & Plan [...] is going to schedule appt with her yard brakeman. 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 [employer] Not on file Not on file Not on file Obstetrics History Last Filed Vital Signs Vital Sign Reading Time Taken Comments Blood Pressure 132/96 09/29/2021 1:57 PM CDT Pulse 85 09/29/2021 1:57 PM CDT Temperature 36.8 C (98.2 F) 09/29/2021 1:57 PM CDT Respiratory Rate 18 01/23/2021 8:52 AM ACID CONDITIONING WORKER Oxygen Saturation 98% 09/29/2021 1:57 PM CDT [...] Recently Relevant to Health Maintenance [place] [address] [facility] [place] [address] [place] [address] Care Teams Absorption Plant Operator Relationship Specialty Start Date End Date Alberta Everett PA PCP - General Order Builder Loader 06/06/20
--- OUTSIDE RECORDS SUMMARY | 2024-07-10 11:09 | XMS_ITS | Continuity of Care Document ---
Author Organization [facility] Address [address] [place] [address] Phone Care Team Providers Care Account Development Executive Name Role Phone Marco Antonio Art MD [...] on Encounter Independent Medical Examination [facility], [address], [id number], tel:[phone] [facility] right knee (chief complaint) Pain in right knee 0 Rubens Bernard. [address] [place] [address], [id number] , [place]. tel: [phone] [facility], [address] [place] [address], [id number], [place] tel:[phone] [facility] No Information 0 Rubens Bernard. [address] [place] [address], [id number] , . tel:[phone] Family History Family Member Type Diagnosis Age At Onset Mother Problem (finding) Seizures Payers Payer name Insurance type Covered constitution party ID Kathie goodson(s) [employer] [id number] Social History Type Description Quantity Date Captured [...] knee pain. On 06/30/19, while working for [employer], she was outside and the knee twisted, [...] knee pain. On 06/30/19, while working for [employer], she was outside and the knee twisted, [...]
--- OUTSIDE RECORDS SUMMARY | 2024-07-10 11:09 | XMS_ITS | Continuity of Care Document ---
Author Organization formerly [facility] Address [address] [place] [address] [address] [place] [address] Phone Care Team Providers Care Dungeon Master Name Role Phone Nida, Lemuel Unavailable Unavailable Advance Directives Directive Yes / No Effective Date File Name No Information Encounters Encounter Description Practice Location Reason(s) For Visit Diagnoses Date Provider Providers Copied on Encounter [facility], [address], [place], [place], [id number], [place] tel:[phone] [facility] No Information 4-200 4 Doisy Edward. [address], [place], [address], [place]. tel:[phone] Family History Family Member Type Diagnosis Age [...]
--- OUTSIDE RECORDS SUMMARY | 2024-07-10 11:09 | XMS_ITS | CONTINUITY OF CARE DOCUMENT ---
Author Name thereseobeyludmila lovett Address Unknown Organization [facility] Address [address] [place] [address] [address] [place] [address] Phone [phone] Care Team Providers Care Delimer Name Role Phone James MARAVILLA, Candace Unavailable [phone] GURDEEP ROLDAN Unavailable [phone] RUI MARAVILLA, YAMINI F Unavailable INSURANCE PROVIDERS Payer name Policy type / Coverage type [place] red libertarian ID [place] [employer] Medicare [id number]
--- OUTSIDE RECORDS SUMMARY | 2024-07-10 11:09 | XMS_ITS | Data Portability ---
Author Organization [facility] Main Office Address [address] [place] [address] Care Team Providers Care Retail Field Supervisor Name Role Phone JUANA SOSA Primary Care Provider [phone] JAUNA SOSA Referring Provider Unavailable Edger Automatic [phone] Assessment Encounter Date Assessment Date Assessment LastModified [...] positive she will require surgical release discussed. [email or web address] Not available 09/07/2022 09:15:10 10/20/2022 10/20/2022 Patient [...] enough that she would like to try. Not available 10/20/2022 14:46:04 11/17/2022 11/17/2022 Patient [...] patient will call to schedule 2022 023 [facility] (Cardiology & Emg), [address], [place], [address], 3 15:40:14 XR, wrist 2022 023 [email or web address] [place], [address], [place], [address], 3 11:50:50 Medication Orders None recorded. Patient TargetsNo targets recorded. Patient InstructionsNo instructions recorded. Reason for Referral None Reported. Results Created Date Observation Date Name Description Value Unit Range Abnormal Flag Note LastModifiedBy Organization Detail LastModifiedTime 12/12/19 21 MRI, shoul fausto, w/o contr ast [facility] [address] [place] [address] Patien t Name: RANJANA COREY ion #: [id number] Sex: F : 1949 Locati on: [...] Patien t Name: RANJANA COREY ion #: [id number] Sex: F : 1949 Exam Date: [...] 11:38 AM (CT) Page 2 of 2 [id number] [facility] (Imaging) [address] [place], [address], 04/22/2022 12:49:20 12/13/19 21 12/11/2020 MRI, shoul fausto, w/o contr ast No observ ation record ed. [id number] [facility] [address], [place], [address], 04/22/2022 12:49:20 09/08/19 23 XR, wrist No observ ation record ed. [facility] [place] [address], [place], [address], 09/07/2022 09:16:46 10/15/19 23 10/14/2022 elect romyo gram + nerve condu ction study No observ ation record ed. [facility] [address], [place], [address], 10/14/2022 15:43:43 Result Notes None recorded. Problems Name Problem SNOMED Code Status Onset Date Resolution Date Notes Provider Name and Address Organization Details Recorded Time Acute tear of meniscus of right knee 6687992841563 9107 Active 2019 Not Available [facility] 3 12:46:36 Knee joint effusion 737593008 Active Not Available [facility] 3 12:46:36 Partial thickness rotator cuff tear 751303703 Active 2020 Not Available [facility] 3 12:46:37 Osteoarthr itis of knee 478608067 Active Not Available [facility] 3 12:46:37 Tear of medial meniscus of knee 671749019 Active 2019 Not Available [facility] 3 12:46:37 Tear of lateral meniscus of knee 808931133 Active 2019 Not Available [facility] 3 12:46:37 Current tear of medial cartilage AND/OR meniscus of knee Active Not Available [facility] 3 12:46:37 Current tear of lateral cartilage AND/OR meniscus of knee Active Not Available [facility] 3 12:46:37 Knee pain Active Not Available [facility] 3 12:46:37 Derangemen t of knee 21848924 Active Not Available [facility] 3 12:46:37 Pain in limb 85756923 Active Not Available [facility] 3 12:46:37 Pain of right wrist 1014276263336 00 Active 2022 MARIE August, [place] [facility] arviem [facility] 3 08:59:44 Carpal tunnel syndrome of right wrist 1922124076243 08 Active 2022 Daina esquivel, [facility] 3 09:10:43 Problem Notes None recorded. Procedures Surgical History None recorded. Imaging Results Imaging Date Name Status LastModified by Organization Details LastModified Time 12/11/2020 MRI, shoulder, w/o contrast completed [id number] [facility] [address], [place], [address], 04/22/2022 12:49:20 12/11/2020 MRI, shoulder, w/o contrast completed [id number] [facility] (Imaging) [address] [place], [address], 04/22/2022 12:49:20 09/07/2022 XR, wrist completed [email or web address] [facility] [place] [address], [place], [address], 09/07/2022 09:16:46 10/14/2022 electromyogram + nerve conduction study completed [address], [place], [address], 10/14/2022 15:43:43 Procedure Notes None recorded. Medical Equipment None Reported. Allergies Allergen ID Allergen Name Allergen Category Reaction Reaction Severity Criticality Documentation Date Start Date Code Code System Note Provider Name and Address Organization Details Recorded Time 09793 acetamino phen / hydrocodo ne medicatio n Not available Not available Not available 04/22/2022 38828 2 RxNorm Not Available [facility] 3 12:49:16 49709 tramadol medicatio n Not available Not available Not available 04/22/2022 84486 RxNorm Not Available [facility] 3 12:49:16 66649 Toradol medicatio n Not available Not available Not available 04/22/2022 68115 RxNorm Not Available [facility] 3 12:49:16 96269 chlorprom azine hydrochlo ride medicatio n Not available Not available Not available 04/22/2022 32126 8 RxNorm Not Available [facility] 3 12:49:16 49493 [place] medicatio n Not available Not available Not available 04/22/2022 8002 RxNorm Not Available [facility] 3 12:49:16 22378 Substance with sulfonami de structure and antibacte rial mechanism of action (substanc e) medicatio n Not available Not available Not available 04/22/2022 10047 8003 SNOMED Not Available [facility] 3 12:49:16 72868 Reglan medicatio n Not available Not available Not available 04/22/2022 9230 RxNorm Not Available [facility] 3 12:49:16 68502 Product containin g penicilli n (product) medicatio n Not available Not available Not available 04/22/2022 16821 8001 SNOMED Not Available [facility] 3 12:49:16 84754 morphine medicatio n Not available Not available Not available 04/22/2022 7052 RxNorm Not Available [facility] 3 12:49:16 75135 Imitrex medicatio n Not available Not available Not available 04/22/2022 73984 3 RxNorm Not Available [facility] 3 12:49:16 56421 E-Mycin medicatio n Not available Not available Not available 04/22/2022 04456 8 RxNorm Not Available [facility] 3 12:49:16 25906 prasteron e medicatio n Not available Not available Not available 04/22/2022 3143 RxNorm Not Available [facility] 3 12:49:16 59994 Compazine medicatio n Not available Not available Not available 04/22/2022 49911 6 RxNorm Not Available [facility] 3 12:49:16 59923 Product containin g beta adrenergi c receptor antagonis t (product) medicatio n Not available Not available Not available 04/22/2022 36358 009 SNOMED Not Available [facility] 3 12:49:16 26653 aspirin medicatio n Not available Not available Not available 04/22/2022 1191 RxNorm Not Available [facility] 3 12:49:16 Medications Name Sig Start Date [...] administe red by the provider 09/07 completed [facility]: [phone] Not Available Not Available [...] administe red by the provider 09/07 completed [facility]: [phone] Not Available Not Available Not Available Zostavax (PF) 19,400 unit/0.65 mL subcutaneou s suspension 10/08 completed Not Available Not Available Not Available hydrochloro thiazide 12.5 mg tablet TAKE 1 TABLET BY MOUTH EVERY DAY 09/07 completed Not Available Not Available Not Available Prevnar 13 (PF) 0.5 mL intramuscul ar syringe 10/08 completed Not Available Not Available Not Available Flulaval 9977-6197 45 mcg (15 mcg x 3)/0.5 mL intramuscul ar suspension 10/08 completed Not Available Not Available Not Available Fluvirin 4486-9019 45 mcg (15 mcg x 3)/0.5 mL intramuscul ar suspension 10/08 completed Not Available Not Available Not Available Fluzone Quad 8132-3426 60 mcg (15 mcg x 4)/0.5 mL [...] Updated DateTime 12/26/2020 24 kg/m2 173.99 cm 23184.78 g Not Available [employer] [facility] 04/22/2022 12:46:02 Date Recorded Body mass index (BMI) Body height Body weight Provider Name and Address Organization Details Last Updated DateTime 01/09/2021 22.5 kg/m2 173.99 cm 01731.86 g Not Available [facility] 04/22/2022 12:46:02 Date Recorded Body height Body mass index (BMI) Body weight Provider Name and Address Organization Details Last Updated DateTime 09/07/2022 172.72 cm 24.3 kg/m2 96209.78 g Nani Dunlap John [facility] [employer] [facility] 09/07/2022 08:57:08 Date Recorded Body height Body mass index (BMI) Body weight Provider Name and Address Organization Details Last Updated DateTime 10/20/2022 173.99 cm 24 kg/m2 69415.78 g Elizabeth Tse CNA [facility] [employer] [facility] 10/20/2022 14:21:49 Date Recorded Body height Body mass index (BMI) Body weight Provider Name and Address Organization Details Last Updated DateTime 11/17/2022 173.99 cm 24 kg/m2 69333.78 g Nani Dunlap [facility] [facility] 11/17/2022 15:32:31 Social History Question Answer Notes LastModified by [employer] Details LastModified Time Tobacco Smoking Status Unknown If Ever Smoked Not Available [facility] 04/22/2022 12:45:44 What Was The Date Of Your Most Recent Tobacco Screening? 11/07/2020 [id number] Information not available 04/22/2022 Sex: Unknown Functional Status Question Answer Note LastModified by [employer] Details LastModified Time What is your level of alcohol consumption? None [id number] Information not available 04/22/2022 Mental Status None recorded. Family History Relationship Description Onset Age of this Age Resolved Age Notes LastModified by Organization Details LastModified Time Maternal Aunt Family history of malignant neoplasm [id number] Not available 04/22/2022 12:45:48 Medical History Condition Response ULCERS Y Gynecological HistoryNo gynecological history recorded. Obstetrics History GPAL:G 0 P 0 0 0 0 Past Encounters Encounter ID Performer Location Encounter Start Date Encounter Closed Date Diagnosis/Indication Diagnosis SNOMED-CT Code Diagnosis ICD10 Code Diagnosis Note [id number] Mark Gustafson MD [facility] [address] [place] [address] 11/07/2020 00:00:00 11/07/2020 13:37:27 [id number] Mark Gustafson MD [facility] [place] [address] [place] [address] 12/05/2020 00:00:00 12/05/2020 10:29:12 [id number] Mark Gustafson MD [facility] [place] [address] [place] [address] 12/26/2020 00:00:00 12/26/2020 13:48:31 [id number] Mark Gustafson MD [facility] [place] [address] [place] [address] 01/09/2021 00:00:00 01/09/2021 11:45:18 [id number] Mark Gustafson MD [facility] [place] [address] [place] [address] 09/07/2022 08:48:18 09/07/2022 09:31:52 Pain of right wrist 2433141006 57871 M25.531 Carpal catarino eleonora syndrome of right wrist 3405891518 84738 G56.01 [id number] Mark Gustafson MD [facility] [place] [address] [place] [address] 10/20/2022 14:15:57 10/20/2022 15:03:38 Pain of right wrist 5211143066 47682 M25.531 Carpal catarino eleonora syndrome of right wrist 2141514509 98357 G56.01 [id number] Mark Gustafson MD [facility] [place] [address] [place] [address] 11/17/2022 15:29:57 11/17/2022 15:55:26 Carpal tunnel syndrome of right wrist 2244049760 81472 G56.01 Health Concerns Section Related Observation LastModified by Organization Detai ls LastModified Time None Recorded Concern Status LastModified by Organization Details LastModified Time None Recorded Advance Directives Directive None Recorded Payers Encounter Date Sequence Insurance Name Policy Number Policy Jo Covered Member ID Jo Member ID Guarantor Name 09/07/2022 1 [facility] (MEDICARE REPLACEMENT HMO) [id number] Ranjana Corey [id number] Ranjanamikki Corey 10/20/2022 1 [facility] (MEDICARE REPLACEMENT HMO) [id number] Ranjanamikki Corey [id number] Ranjanamikki Anguianomore 11/17/2022 1 [facility] (MEDICARE REPLACEMENT HMO) [id number] Ranjana Corey [id number] Ranjana Corey Notes Date Note Type Note [...] change in bowel/bladder habits;swelling;warmt h Not Available [facility] 12/26/2020 13:48:31 01/09/2021 text/html ShoulderReported bypatient.Location:an terior; [...] change in bowel/bladder habits;swelling;warmt h Not Available [facility] 01/09/2021 11:45:18 09/07/2022 text/html Patient returns carpal tunnel complaints on RIGHT. I previously redid her LEFT carpal tunnel release, and that has done well. Now she has symptoms on the rightas well. She previously had carpal tunnels done in the . Mark Gustafson MD [address], [place], [address], [facility] 09/07/2022 09:17:37 10/20/2022 text/html Patient returns carpal tunnel complaints right. The rim she remains symptomatic. The EMG does not show significant nerve compression although she had similar findings on her left hand which I redid, and it seemed to help with the pain. Mark Gustafson MD [address], [place], [address], [facility] 10/20/2022 14:46:24 11/17/2022 text/html Patient returns status post carpal tunnel release right. This was a reduce I told her before surgery that I can not guarantee it is going to get better. Fortunately she seems to be doing better and less numbness and tingling less pain. Mark Gustafson MD [address], [place], [address], [facility] 11/17/2022 15:45:19 OBGyn Episode No OBEpisode recorded.
--- OUTSIDE RECORDS SUMMARY | 2024-07-10 11:09 | XMS_ITS | Referral Summary ---
Author Organization [place] [id number] [facility] Address [address] [place] [address] Care Team Providers Care Research Laboratory Manager Name Role Phone Alberta Everett Primary Care Provider [phone] Allergies Active Allergy Reactions Criticality Noted Date [...] 04/16/2021 Assessment & Plan (04/16/2021 2:10 PM RESTAURANT ASSISTANT): Patient declines the advised covid test at this time. She will increase fluids, use tylenol 500mg q6h prn fever/headache. She will report to the office if symptoms are not improving or if they worsen over the coming 72h. TMJ (temporomandibular joint disorder) Assessment & Plan (01/23/2021 2:35 PM RESTAURANT ASSISTANT): Patient cannot take nsaids. Will try mdp for assistance. We discussed referral to ent/dentist pending response. She does not having funding for dentures, which we discussed would benefit her condition. Otalgia, left 01/09/2021 Assessment & Plan (01/23/2021 2:35 PM RESTAURANT ASSISTANT): We discussed this is likely secondary to TMJ. Discussed ENT referral if no improvement in symptoms. Assessment & Plan (01/09/2021 8:17 AM RESTAURANT ASSISTANT): Start on doxycycline x 10 days Advised [...] 120-130/80s. Assessment & Plan (01/23/2021 2:35 PM RESTAURANT ASSISTANT): Add hctz daily Advised goal 120-130/80 Advised [...] with xrays. She plans to go to [facility] in [place]. Start PT. She can schedule now and then will need to let the office know where so an [facility] referral can be sent. Provided names of locations in [place] per her request. Tylenol or prn NSAIDs. [...] improving and sooner if worsening Will retrieve [facility] records for review She declines xray/ct [...] 07/03/2020 Assessment & Plan (01/23/2021 2:36 PM RESTAURANT ASSISTANT): Weight/bmi in healthy range Assessment & Plan [...] is going to schedule appt with her unit leader. 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 [employer] Not on file Not on file Not on file Last Filed Vital Signs Vital Sign Reading Time Taken Comments Blood Pressure 132/96 09/29/2021 1:57 PM CDT Pulse 85 09/29/2021 1:57 PM CDT Temperature 36.8 C (98.2 F) 09/29/2021 1:57 PM CDT Respiratory Rate 18 01/23/2021 8:52 AM RESTAURANT ASSISTANT Oxygen Saturation 98% 09/29/2021 1:57 PM CDT [...] Recently Relevant to Health Maintenance Insurance [facility] Care Teams Research Laboratory Manager Relationship Specialty Start Date End Date Alberta Everett PA PCP - General Well Blower 06/06/20
== END 2024-07-10 10:39 | disposition home or self-care (01) ==
LOC: ANHIMG 10:39
PROVIDERS: PCP Family Medicine; Visit Provider Family Medicine
DX: Z12.31 Encounter for screening mammogram for malignant neoplasm of breast (principal)
CPT/HCPCS: 77063; 77067

== ENCOUNTER 2024-07-27 00:17 | Day surgery (SDC) | payer OTHER, SELFPAY ==
[2024-07-18 12:25] VITALS: BMI 26.1
--- OUTSIDE RECORDS SUMMARY | 2024-07-27 00:20 | XMS_ITS | Continuity of Care Document ---
Author Organization [facility] Address [address] [place] [address] [address] [place] [address] Phone Care Team Providers Care Public Speaker Name Role Phone Nida, Lemuel Unavailable Unavailable Advance Directives Directive Yes / No Effective Date File Name No Information Encounters Encounter Description Practice Location Reason(s) For Visit Diagnoses Date Provider Providers Copied on Encounter [facility], [address], [place], [place], [id number], [place] tel:[phone] [facility] No Information 4-200 4 Doisy Edward. [address] , [address], [place], [address], [place]. tel:[phone] Family History Family Member Type Diagnosis Age [...]
--- OUTSIDE RECORDS SUMMARY | 2024-07-27 00:20 | XMS_ITS | Continuity of Care Document ---
Author Organization [facility] Address [address] [place] [address] Phone Care Team Providers Care Foundry Metallurgist Name Role Phone Marco Antonio Art MD, [...] on Encounter Independent Medical Examination [facility], [address], [id number], [place] tel:[phone] [facility] right knee (chief complaint) Pain in right knee 0 Rubens Bernard. [address], [id number] , [place]. tel: [phone] [facility], [address] [place] [address], [id number], [place] tel:[phone] [facility] No Information 0 Rubens Bernard. [address] [place] [address], [id number] , . tel:[phone] Family History Family Member Type Diagnosis Age At Onset Mother Problem (finding) Seizures Payers Payer name Insurance type Covered democrat ID Kathie goodson(s) [email or web address] [id number] Social History Type Description Quantity Date Captured [...] knee pain. On 06/30/19, while working for [employer], she was outside and the knee twisted, [...] knee pain. On 06/30/19, while working for [employer], she was outside and the knee twisted, [...]
--- OUTSIDE RECORDS SUMMARY | 2024-07-27 00:20 | XMS_ITS | CONTINUITY OF CARE DOCUMENT ---
Author Name [email or web address] Address Unknown Organization [facility] Address [address] [place] [address] [address] [place] [address] Phone [phone] Care Team Providers Care Boat Finisher Name Role Phone James MARAVILLA, Candace Unavailable GURDEEP ROLDAN Unavailable RUI MARAVILLA, YAMINI F Unavailable INSURANCE PROVIDERS Payer name Policy type / Coverage type [place] red alliance party ID [place] [employer] Medicare [id number]
--- OUTSIDE RECORDS SUMMARY | 2024-07-27 00:20 | XMS_ITS | Data Portability ---
Author Organization [facility], Main Office Address [address] [place] [address] Care Team Providers Care Rigging Supervisor Name Role Phone JUANA SOSA Primary Care Provider JUANA SOSA Referring Provider Unavailable Storage Engineer Assessment Encounter Date Assessment Date Assessment LastModified [...] positive she will require surgical release discussed. [email or web address] Not available 09/07/2022 09:15:10 10/20/2022 10/20/2022 Patient [...] enough that she would like to try. [email or web address] Not available 10/20/2022 14:46:04 11/17/2022 11/17/2022 Patient [...] patient will call to schedule 2022 023 [facility] ([facility]), [address], [place], [address], 3 15:40:14 XR, wrist 2022 023 [email or web address] [place], [address], [place], [address], 3 11:50:50 Medication Orders None recorded. Patient TargetsNo targets recorded. Patient InstructionsNo instructions recorded. Reason for Referral None Reported. Results Created Date Observation Date Name Description Value Unit Range Abnormal Flag Note LastModifiedBy Organization Detail LastModifiedTime 12/12/19 21 MRI, shoul fausto, w/o contr ast [facility] [address] [place] [address] Patien t Name: RANJANA COREY ion #: [id number] Sex: F : 1949 Locati on: [...] Patien t Name: RANJANA COREY ion #: [id number] Sex: F : 1949 Exam Date: [...] 11:38 AM (CT) Page 2 of 2 [id number] [facility] (Imaging) [address] [place], [address], 04/22/2022 12:49:20 12/13/19 21 12/11/2020 MRI, shoul fausto, w/o contr ast No observ ation record ed. [id number] [facility] [address], [place], [address], 04/22/2022 12:49:20 09/08/19 23 XR, wrist No observ ation record ed. [facility] [place] [address], [place], [address], 09/07/2022 09:16:46 10/15/19 23 10/14/2022 elect romyo gram + nerve condu ction study No observ ation record ed. [facility] [address], [place], [address], 10/14/2022 15:43:43 Result Notes None recorded. Problems Name Problem SNOMED Code Status Onset Date Resolution Date Notes Provider Name and Address Organization Details Recorded Time Acute tear of meniscus of right knee 1281052293135 9107 Active 2019 Not Available [facility] 3 12:46:36 Knee joint effusion 263269281 Active Not Available [facility] 3 12:46:36 Partial thickness rotator cuff tear 340156431 Active 2020 Not Available [facility] 3 12:46:37 Osteoarthr itis of knee 952742003 Active Not Available [facility] 3 12:46:37 Tear of medial meniscus of knee 612072437 Active 2019 Not Available [facility] 3 12:46:37 Tear of lateral meniscus of knee 566674218 Active 2019 Not Available [facility] 3 12:46:37 Current tear of medial cartilage AND/OR meniscus of knee Active Not Available [facility] 3 12:46:37 Current tear of lateral cartilage AND/OR meniscus of knee Active Not Available [facility] 3 12:46:37 Knee pain Active Not Available [facility] 3 12:46:37 Derangemen t of knee 38180461 Active Not Available [facility] 3 12:46:37 Pain in limb 46021768 Active Not Available [facility] 3 12:46:37 Pain of right wrist 9028051998238 00 Active 2022 MARIE August, [place] [facility] [employer] [facility] 3 08:59:44 Carpal tunnel syndrome of right wrist 9591688729078 08 Active 2022 Daina esquivel, [place] [facility] 3 09:10:43 Problem Notes None recorded. Medical Equipment None Reported. Allergies Allergen ID Allergen Name Allergen Category Reaction Reaction Severity Criticality Documentation Date Start Date Code Code System Note Provider Name and Address Organization Details Recorded Time 07805 acetamino phen / hydrocodo ne medicatio n Not available Not available Not available 04/22/2022 28068 2 RxNorm Not Available [facility] 3 12:49:16 30026 tramadol medicatio n Not available Not available Not available 04/22/2022 07676 RxNorm Not Available [facility] 3 12:49:16 42640 Toradol medicatio n Not available Not available Not available 04/22/2022 43095 RxNorm Not Available [facility] 3 12:49:16 10351 chlorprom azine hydrochlo ride medicatio n Not available Not available Not available 04/22/2022 33088 8 RxNorm Not Available [facility] 3 12:49:16 08707 Talwin medicatio n Not available Not available Not available 04/22/2022 8002 RxNorm Not Available [facility] 3 12:49:16 80547 Substance with sulfonami de structure and antibacte rial mechanism of action (substanc e) medicatio n Not available Not available Not available 04/22/2022 69623 8003 SNOMED Not Available [facility] 3 12:49:16 92821 Reglan medicatio n Not available Not available Not available 04/22/2022 9230 RxNorm Not Available [facility] 3 12:49:16 27245 Product containin g penicilli n (product) medicatio n Not available Not available Not available 04/22/2022 70380 8001 SNOMED Not Available [facility] 3 12:49:16 00281 morphine medicatio n Not available Not available Not available 04/22/2022 7052 RxNorm Not Available [facility] 3 12:49:16 89769 Imitrex medicatio n Not available Not available Not available 04/22/2022 07847 3 RxNorm Not Available [facility] 3 12:49:16 44127 E-Mycin medicatio n Not available Not available Not available 04/22/2022 29029 8 RxNorm Not Available [facility] 3 12:49:16 59722 prasteron e medicatio n Not available Not available Not available 04/22/2022 3143 RxNorm Not Available [facility] 3 12:49:16 84992 Compazine medicatio n Not available Not available Not available 04/22/2022 12639 6 RxNorm Not Available [facility] 3 12:49:16 30466 Product containin g beta adrenergi c receptor antagonis t (product) medicatio n Not available Not available Not available 04/22/2022 60521 009 SNOMED Not Available [facility] 3 12:49:16 12204 aspirin medicatio n Not available Not available Not available 04/22/2022 1191 RxNorm Not Available [facility] 3 12:49:16 Medications Name Sig Start Date [...] administe red by the provider 09/07 completed [facility]: 0003- 0494- 20 Not Available Not Available [...] administe red by the provider 09/07 completed [facility]: 0409- 4276- 17 Not Available Not Available Not Available Zostavax (PF) 19,400 unit/0.65 mL subcutaneou s suspension 10/08 completed Not Available Not Available Not Available hydrochloro thiazide 12.5 mg tablet TAKE 1 TABLET BY MOUTH EVERY DAY 09/07 completed Not Available Not Available Not Available Prevnar 13 (PF) 0.5 mL intramuscul ar syringe 10/08 completed Not Available Not Available Not Available Flulaval 1954-9804 45 mcg (15 mcg x 3)/0.5 mL intramuscul ar suspension 10/08 completed Not Available Not Available Not Available Fluvirin 7331-3247 45 mcg (15 mcg x 3)/0.5 mL intramuscul ar suspension 10/08 completed Not Available Not Available Not Available Fluzone Quad 60 mcg (15 mcg x 4)/0.5 mL IM suspension 10/08 completed Not Available Not Available Not Available Shingrix (PF) 50 mcg/0.5 mL intramuscul ar suspension, kit 11/07 completed Not Available Not Available Not Available Fluad 2018-20 65yr up(PF)45 mcg(15 mcgx3)/0.5 mL intramuscul ar syringe 11/07 completed Not Available Not Available Not Available Fluzone High-Dose Quad (PF) 240 mcg/0.7 mL IM syringe TO BE ADMINISTE RED BY PHARMACIS T FOR IMMUNIZAT ION active Not Available Not Available No t Available Vitals Date Recorded Body height Body mass index (BMI) Body weight Provider Name and Address Organization Details Last Updated DateTime 09/07/2022 172.72 cm 24.3 kg/m2 83189.78 g Nanijennifer Dunlap John [employer] 09/07/2022 08:57:08 Date Recorded Body height Body mass index (BMI) Body weight Provider Name and Address Organization Details Last Updated DateTime 10/20/2022 173.99 cm 24 kg/m2 91722.78 g Elizabeth Tse CNA [employer] 10/20/2022 14:21:49 Date Recorded Body height Body mass index (BMI) Body weight Provider Name and Address Organization Details Last Updated DateTime 11/17/2022 173.99 cm 24 kg/m2 22542.78 g Nani Germ[facility] [employer] 11/17/2022 15:32:31 Date Recorded Body mass index (BMI) Body height Body weight Provider Name and Address Organization Details Last Updated DateTime 12/26/2020 24 kg/m2 173.99 cm 83412.78 g Not Available [facility] 04/22/2022 12:46:02 Date Recorded Body mass index (BMI) Body height Body weight Provider Name and Address Organization Details Last Updated DateTime 01/09/2021 22.5 kg/m2 173.99 cm 94572.86 g Not Available [facility] 04/22/2022 12:46:02 Social History Question Answer Notes LastModified by Organizat ion Details LastModified Time Tobacco Smoking Status Unknown If Ever Smoked Not Available [facility] 04/22/2022 12:45:44 What Was The Date Of Your Most Recent Tobacco Screening? 11/07/2020 [id number] Information not available 04/22/2022 Sex: Unknown Functional Status Question Answer Note LastModified by Organizat ion Details LastModified Time What is your level of alcohol consumption? None [id number] Information not available 04/22/2022 Mental Status None recorded. Family History Relationship Description Onset Age of this Age Resolved Age Notes LastModified by Organization Details LastModified Time Maternal Aunt Family history of malignant neoplasm [id number] Not available 04/22/2022 12:45:48 Medical History Condition Response ULCERS Y Gynecological HistoryNo gynecological history recorded. Obstetrics History GPAL:G 0 P 0 0 0 0 Past Encounters Encounter ID Performer Location Encounter Start Date Encounter Closed Date Diagnosis/Indication Diagnosis SNOMED-CT Code Diagnosis ICD10 Code Diagnosis Note [id number] Mark Gustafson MD [facility] [place] [address] [place] [address] 11/07/2020 00:00:00 11/07/2020 13:37:27 [id number] Mark Gustafson MD [facility] [place] [address] [place] [address] 12/05/2020 00:00:00 12/05/2020 10:29:12 [id number] Mark Gustafson MD [facility] [place] [address] [place] [address] 12/26/2020 00:00:00 12/26/2020 13:48:31 [id number] Mark Gustafson MD [facility] [place] [address] [place] [address] 01/09/2021 00:00:00 01/09/2021 11:45:18 [id number] Mark Gustafson MD [facility] [place] [address] [place] [address] 09/07/2022 08:48:18 09/07/2022 09:31:52 Pain of right wrist 1237897596 39045 M25.531 Carpal catarino eleonora syndrome of right wrist 0318698741 22774 G56.01 [id number] Mark Gustafson MD [facility] [place] [address] [place] [address] 10/20/2022 14:15:57 10/20/2022 15:03:38 Pain of right wrist 6507444082 49889 M25.531 Carpal catarino eleonora syndrome of right wrist 1136064199 92855 G56.01 [id number] Mark Gustafson MD [facility] [place] [address] [place] [address] 11/17/2022 15:29:57 11/17/2022 15:55:26 Carpal tunnel syndrome of right wrist 6591580051 91184 G56.01 Health Concerns Section Related Observation LastModified by Organization Detai ls LastModified Time None Recorded Concern Status LastModified by Organization Details LastModified Time None Recorded Advance Directives Directive None Recorded Payers Encounter Date Sequence Insurance Name Policy Number Policy Jo Covered Member ID Jo Member ID Guarantor Name 09/07/2022 1 [employer] (MEDICARE REPLACEMENT HMO) [id number] Ranjana S [place] [id number] Ranjana S [place] 10/20/2022 1 [employer] (MEDICARE REPLACEMENT HMO) [id number] Ranjana S [place] [id number] Ranjana S Madhav 11/17/2022 1 [employer] (MEDICARE REPLACEMENT HMO) [id number] Ranjana S [place] [id number] Ranjana S [place] Notes Date Note Type Note Provider Name [...] change in bowel/bladder habits;swelling;warmt h Not Available [place] [facility] [employer] [facility] 12/26/2020 13:48:31 01/09/2021 text/html ShoulderReported bypatient.Location:an terior; [...] change in bowel/bladder habits;swelling;warmt h Not Available [employer] [facility] 01/09/2021 11:45:18 09/07/2022 text/html Patient returns carpal tunnel complaints on RIGHT. I previously redid her LEFT carpal tunnel release, and that has done well. Now she has symptoms on the rightas well. She previously had carpal tunnels done in the . Mark Gustafson MD [address], [place], [address], [facility] [employer] [facility] 09/07/2022 09:17:37 10/20/2022 text/html Patient returns carpal tunnel complaints right. The rim she remains symptomatic. The EMG does not show significant nerve compression although she had similar findings on her left hand which I redid, and it seemed to help with the pain. Mark Gustafson MD [address], [place], [address], [facility] [employer] [facility] 10/20/2022 14:46:24 11/17/2022 text/html Patient returns status post carpal tunnel release right. This was a reduce I told her before surgery that I can not guarantee it is going to get better. Fortunately she seems to be doing better and less numbness and tingling less pain. Mark Gustafson MD [address], [place], [address], [facility] [employer] [facility] 11/17/2022 15:45:19 OBGyn Episode No OBEpisode recorded.
--- OUTSIDE RECORDS SUMMARY | 2024-07-27 00:20 | XMS_ITS | Referral Summary ---
Author Organization [place] [id number] [facility] Address [address] [place] [address] Care Team Providers Care Director Of Adult Epilepsy Name Role Phone Alberta Everett Primary Care Provider [phone] Allergies Active Allergy Reactions Criticality Noted Date [...] 04/16/2021 Assessment & Plan (04/16/2021 2:10 PM PROJECT ACCOUNTANT): Patient declines the advised covid test at this time. She will increase fluids, use tylenol 500mg q6h prn fever/headache. She will report to the office if symptoms are not improving or if they worsen over the coming 72h. TMJ (temporomandibular joint disorder) Assessment & Plan (01/23/2021 2:35 PM PROJECT ACCOUNTANT): Patient cannot take nsaids. Will try mdp for assistance. We discussed referral to ent/dentist pending response. She does not having funding for dentures, which we discussed would benefit her condition. Otalgia, left 01/09/2021 Assessment & Plan (01/23/2021 2:35 PM PROJECT ACCOUNTANT): We discussed this is likely secondary to TMJ. Discussed ENT referral if no improvement in symptoms. Assessment & Plan (01/09/2021 8:17 AM PROJECT ACCOUNTANT): Start on doxycycline x 10 days Advised [...] 120-130/80s. Assessment & Plan (01/23/2021 2:35 PM PROJECT ACCOUNTANT): Add hctz daily Advised goal 120-130/80 Advised [...] with xrays. She plans to go to [facility] in [place]. Start PT. She can schedule now and then will need to let the office know where so an [facility] referral can be sent. Provided names of locations in [place] per her request. Tylenol or prn NSAIDs. [...] improving and sooner if worsening Will retrieve [facility] records for review She declines xray/ct [...] 07/03/2020 Assessment & Plan (01/23/2021 2:36 PM PROJECT ACCOUNTANT): Weight/bmi in healthy range Assessment & Plan [...] is going to schedule appt with her physical chemistry teacher. 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 [employer] Not on file Not on file Not on file Last Filed Vital Signs Vital Sign Reading Time Taken Comments Blood Pressure 132/96 09/29/2021 1:57 PM CDT Pulse 85 09/29/2021 1:57 PM CDT Temperature 36.8 C (98.2 F) 09/29/2021 1:57 PM CDT Respiratory Rate 18 01/23/2021 8:52 AM PROJECT ACCOUNTANT Oxygen Saturation 98% 09/29/2021 1:57 PM CDT Inhaled Oxygen Concentration - - Weight 81.6 kg (180 lb) 09/29/2021 1:57 PM CDT Height 170.2 cm (5' 7) 09/29/2021 1:57 PM CDT Body Mass Index [...] Most Recently Relevant to Health Maintenance Insurance [facility] Care Teams Director Of Adult Epilepsy Relationship Specialty Start Date End Date Alberta Everett PA PCP - General Stock Buyer 06/06/20
--- OUTSIDE RECORDS SUMMARY | 2024-07-27 00:20 | XMS_ITS | Clinical Summary ---
Author Organization [place] [id number] Address [address] [place] [id number] Care Team Providers Care Crop Grain Or Livestock Farm Manager Name Role Phone Alberta Everett Primary Care Provider [phone] Allergies Active Allergy Reactions Criticality Noted Date [...] 04/16/2021 Assessment & Plan (04/16/2021 2:10 PM GREETING CARD WRITER): Patient declines the advised covid test at this time. She will increase fluids, use tylenol 500mg q6h prn fever/headache. She will report to the office if symptoms are not improving or if they worsen over the coming 72h. TMJ (temporomandibular joint disorder) Assessment & Plan (01/23/2021 2:35 PM GREETING CARD WRITER): Patient cannot take nsaids. Will try mdp for assistance. We discussed referral to ent/dentist pending response. She does not having funding for dentures, which we discussed would benefit her condition. Otalgia, left 01/09/2021 Assessment & Plan (01/23/2021 2:35 PM GREETING CARD WRITER): We discussed this is likely secondary to TMJ. Discussed ENT referral if no improvement in symptoms. Assessment & Plan (01/09/2021 8:17 AM GREETING CARD WRITER): Start on doxycycline x 10 days Advised [...] 120-130/80s. Assessment & Plan (01/23/2021 2:35 PM GREETING CARD WRITER): Add hctz daily Advised goal 120-130/80 Advised [...] with xrays. She plans to go to [facility] in [place]. Start PT. She can schedule now and then will need to let the office know where so an [facility] referral can be sent. Provided names of locations in [place] per her request. Tylenol or prn NSAIDs. [...] improving and sooner if worsening Will retrieve [facility] records for review She declines xray/ct [...] 07/03/2020 Assessment & Plan (01/23/2021 2:36 PM GREETING CARD WRITER): Weight/bmi in healthy range Assessment & Plan [...] is going to schedule appt with her cash sales audit clerk. 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 [employer] Not on file Not on file Not on file Obstetrics History Last Filed Vital Signs Vital Sign Reading Time Taken Comments Blood Pressure 132/96 09/29/2021 1:57 PM CDT Pulse 85 09/29/2021 1:57 PM CDT Temperature 36.8 C (98.2 F) 09/29/2021 1:57 PM CDT Respiratory Rate 18 01/23/2021 8:52 AM GREETING CARD WRITER Oxygen Saturation 98% 09/29/2021 1:57 PM CDT [...] 5 season) 2023 05/17/2020, 04/19/2020 Influenza Vaccine (Season Ended) 2024 11/26/2020, 11/23/2019, 11/02/2016 DTaP/Tdap/Td Vaccine (2 - Td [...] Recently Relevant to Health Maintenance [place] [address] [facility] [place] [address] [place] [address] Care Teams Crop Grain Or Livestock Farm Manager Relationship Specialty Start Date End Date Alberta Everett PA PCP - General Distillation Operator Helper 06/06/20
[2024-07-27 12:19] VITALS: BP 168/108; PULSE 73; RESP 18; TEMP 36.7; O2SAT 99
--- NOTE | 2024-07-27 12:21 | P.PNAN_ITS ---
Anes - Initial Pre Proc Eval Procedure: Operation Date: 07/27/24 14:00 Proposed Procedures p Esophagogastroduodenoscopy - Stan Mayberry MD Date/Time: 07/27/24 12:21 Surgeon: Stan Mayberry MD Pre Op Diagnosis: Other chest pain Patient Data Age: 74 Gender: F Height: 1.73 m Weight: 82.3 kg Last Vital Signs Temp 98.0 F 07/27/24 12:19 Pulse 73 07/27/24 12:19 Resp 18 07/27/24 12:19 BP 168/108 H 07/27/24 12:19 Pulse Ox 99 07/27/24 12:19 O2 Del Method Room Air 07/27/24 12:19 Allergies Allergy/AdvReac Type Severity Reaction Status Date / Time aspirin Allergy Severe GI UPSET, Verified 07/18/24 12:24 STOMACH ULCERATION erythromycin base Allergy Severe SWELLING Verified 07/18/24 12:24 Penicillins Allergy Severe ANAPHALACTI Verified 07/18/24 12:24 C Sulfa (Sulfonamide Allergy Severe ANAPHALACTI Verified 07/18/24 12:24 Antibiotics) C tramadol Allergy Severe SWELLING Verified 07/18/24 12:24 dihydroergotamine Allergy Mild Anaphylaxis Verified 07/18/24 12:24 hydrocodone (From Vicodin) Allergy Mild Hives Verified 07/18/24 12:24 pentazocine (From Talwin) Allergy Mild Anaphylaxis Verified 07/18/24 12:24 promethazine Allergy Unknown Unknown Verified 07/18/24 12:24 acetaminophen (From Vicodin) Allergy Unknown Verified 07/18/24 12:24 chlorpromazine (From Allergy Unknown Verified 07/18/24 12:24 Thorazine) ibuprofen (From Motrin) Allergy Unknown Verified 07/18/24 12:24 ketorolac (From Toradol) Allergy Unknown Verified 07/18/24 12:24 metoclopramide (From Reglan) Allergy Unknown Verified 07/18/24 12:24 prochlorperazine (From Allergy Unknown Verified 07/18/24 12:24 Compazine) Beta-Blockers AdvReac Severe BP PROBLEMS Verified 07/18/24 12:24 (Beta-Adrenergic Bloc sumatriptan AdvReac Severe BP SPIKE Verified 07/18/24 12:24 Home Medications ?Medication ?Instructions ?Recorded ?Confirmed ?Type cyanocobalamin (vitamin B-12) 1,000 mcg PO DAILY #30 caps 07/11/24 07/27/24 Rx 1,000 mcg capsule Patient hx anesthesia problems: none Family hx anesthesia problems: none Results Review: All pre-operative results and documents have been reviewed as part of the pre- operative evaluation. FORMERLY [facility] Past Medical History Medical History Osteoarthritis Essential (primary) hypertension Seizure no longer on meds Surgical History Surgical History History of right knee surgery (~08/2013) meniscus repair History of bilateral carpal tunnel release (~2007) History of shoulder surgery (~08/2011) bilateral Arthroscopic acromioplasty and Open distal clavicle excision. History of hysterectomy (~2018) History of tubal ligation (~1976) History of (~1976) History of cholecystectomy (~1969) History of appendectomy (~1969) Family History Family History Father Family history of premature coronary heart disease, Onset Age: 75 Patient's father is Alcohol abuse Mother Cerebrovascular accident, Onset Age: 75 Hypertension Social History Social History Smoking status: Never smoker Second hand tobacco smoke exposure: No Alcohol intake: never Substance use: never Substance use type: does not use Do You Feel Safe in your Home?: Yes Lack of Transportation: No Lack of Food: Never True Current Housing: I Have Housing Concerned About Future Housing: No Difficulty Paying Gas/Electric Bills: No Difficulty Paying for Meds: No Currently Unemployed: No Education: High School Diploma/GED Difficulty w/ Childcare or Family Care: No Living arrangements: with family Occupation/Education: occupation 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 ) Neurological: alert and oriented Last oral intake: >/= 8 hours ASA classification: III Emergent: no Anesthetic plan: proceed Anesthesia type and monitoring: general GIVS and standard monitoring Results Review: All pre-operative results and documents have been reviewed as part of the pre- operative evaluation. Dysphagia, pt w HTN but not on meds. Informed Consent: The patient's anesthetic plan and its attendant risks and benefits were discussed with the patient/family/POA. Questions were solicited and answers provided to the satisfaction of the patient/family/POA.
[2024-07-27] MEDS: LACTATED RINGERS 1,000 ML 150 ML IV CONT (12:23)
[2024-07-27] MEDS: SIMETHICONE ORAL SUSPENSION 20 MG/0.3 ML 30 ML BOTTLE 1.8 ML PO (12:26)
--- NOTE | 2024-07-27 12:32 | PM.IMHP ---
H&P: HPI History of Present Illness Date/Time: 07/27/24 12:32 Chief Complaint: Dysphagia Narrative: this patient started having difficulty swallowing solids and liquids for the past month. This symptom has been progressively worsening and is associated with sore throat, hoarseness and occasional chest pain/ discomfort when swallowing. There is no documented weight loss, nausea or vomiting. The patient does not have a history of smoking or drinking alcohol, and has not suffered from heartburn prior to the onset of symptoms. Review of Systems Review of Systems: All systems reviewed & are unremarkable except as noted in HPI and below PMFSH Past Medical History Medical History Osteoarthritis Essential (primary) hypertension Seizure no longer on meds Surgical History Surgical History History of right knee surgery (~08/2013) meniscus repair History of bilateral carpal tunnel release (~2007) History of shoulder surgery (~08/2011) bilateral Arthroscopic acromioplasty and Open distal clavicle excision. History of hysterectomy (~2018) History of tubal ligation (~1976) History of (~1976) History of cholecystectomy (~1969) History of appendectomy (~1969) Family History Family History Father Family history of premature coronary heart disease, Onset Age: 75 Patient's father is Alcohol abuse Mother Cerebrovascular accident, Onset Age: 75 Hypertension Social History Social History Smoking status: Never smoker Second hand tobacco smoke exposure: No Alcohol intake: never Substance use: never Substance use type: does not use Do You Feel Safe in your Home?: Yes Lack of Transportation: No Lack of Food: Never True Current Housing: I Have Housing Concerned About Future Housing: No Difficulty Paying Gas/Electric Bills: No Difficulty Paying for Meds: No Currently Unemployed: No Education: High School Diploma/GED Difficulty w/ Childcare or Family Care: No Living arrangements: with family Occupation/Education: occupation 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 Gender identity (if verbalized by the patient): Female Sexual Orientation (if Verbalized by the Patient): Straight or Heterosexual Spiritual care concerns: No Agree to blood products: Yes Meds Home Medications and Allergies Home Medications ?Medication ?Instructions ?Recorded ?Confirmed ?Type cyanocobalamin (vitamin B-12) 1,000 mcg PO DAILY #30 caps 07/11/24 07/27/24 Rx 1,000 mcg capsule Allergies Allergy/AdvReac Type Severity Reaction Status Date / Time aspirin Allergy Severe GI UPSET, Verified 07/18/24 12:24 STOMACH ULCERATION erythromycin base Allergy Severe SWELLING Verified 07/18/24 12:24 Penicillins Allergy Severe ANAPHALACTI Verified 07/18/24 12:24 C Sulfa (Sulfonamide Allergy Severe ANAPHALACTI Verified 07/18/24 12:24 Antibiotics) C tramadol Allergy Severe SWELLING Verified 07/18/24 12:24 dihydroergotamine Allergy Mild Anaphylaxis Verified 07/18/24 12:24 hydrocodone (From Vicodin) Allergy Mild Hives Verified 07/18/24 12:24 pentazocine (From Talwin) Allergy Mild Anaphylaxis Verified 07/18/24 12:24 promethazine Allergy Unknown Unknown Verified 07/18/24 12:24 acetaminophen (From Vicodin) Allergy Unknown Verified 07/18/24 12:24 chlorpromazine (From Allergy Unknown Verified 07/18/24 12:24 Thorazine) ibuprofen (From Motrin) Allergy Unknown Verified 07/18/24 12:24 ketorolac (From Toradol) Allergy Unknown Verified 07/18/24 12:24 metoclopramide (From Reglan) Allergy Unknown Verified 07/18/24 12:24 prochlorperazine (From Allergy Unknown Verified 07/18/24 12:24 Compazine) Beta-Blockers AdvReac Severe BP PROBLEMS Verified 07/18/24 12:24 (Beta-Adrenergic Bloc sumatriptan AdvReac Severe BP SPIKE Verified 07/18/24 12:24 Vital Signs Vital Signs - 24 hr 07/27/24 12:19 Temperature 98.0 F Pulse Rate 73 Respiratory Rate 18 Blood Pressure 168/108 H Pulse Oximetry 99 Oxygen Delivery Room Air Exam Const: General: cooperative and healthy appearing Resp: Effort & Inspection: normal respiratory effort and able to speak in complete sentences Auscultation: clear to auscultation bilaterally Cardio: Rate: regular rate Rhythm: regular rhythm GI: Inspection: normal to inspection GI Palp: No No hepatosplenomegaly present Auscultation: normal bowel sounds Rectal Exam: deferred Skin: General skin exam: normal color Psych: Appearance: grossly normal Mental Status: mental status grossly normal Assessment and Plan Assessment and plan (1) Dysphagia: Qualifiers: Dysphagia type: esophageal phase Qualified Code(s): R13.19 - Other dysphagia Code(s): R13.10 - Dysphagia, unspecified Status: Acute Assessment and Plan: The patient is deemed a good candidate for the procedure. Consent signed. Will proceed.
[2024-07-27 12:44] VITALS: BP 121/62; PULSE 69; RESP 23; O2SAT 97
--- NOTE | 2024-07-27 12:44 | S_PTH ---
PATIENT: Ranjana Corey LOC: [facility] U#:[id number] AGE/SX: 74/F ROOM: RE07/27/[address]: Stan Mayberry MD : 1950 BED: DIS: 07/27/2024 SPEC #: [id number] RECD: 07/27/24 13:04 STATUS: KIMBERLY REBarron #: [id number] [place]: 07/27/24 12:[address]: Stan Mayberry DEPT: [facility] Surgical RECD BY: Celeste Devries ENTERED: 07/27/24 13:04 SP TYPE: Surgical OTHR DR: Marek Hager MD Tissues: A - Gastric Biopsy B - Gastric Biopsy Procedures: Hematoxylin and Eosin Stain Gross and Microscopic Level 4
[2024-07-27 12:54] VITALS: BP 127/69; PULSE 63; RESP 25; O2SAT 98
[2024-07-27 13:04] VITALS: BP 149/85; PULSE 62; RESP 17; O2SAT 99
== END 2024-07-27 13:24 | disposition home or self-care (01) ==
PROVIDERS: PCP Family Medicine; Referring Provider Family Medicine; Visit Provider Internal Medicine Gastroenterology
PROC: 0DJ08ZZ Inspection of Upper Intestinal Tract, Via Natural or Artificial Opening Endoscopic (ICD-10-PCS; CPT 43239; principal; 2024-07-27 14:00)
DX: K21.00 Gastro-esophageal reflux disease with esophagitis, without bleeding (principal); K29.50 Unspecified chronic gastritis without bleeding; K44.9 Diaphragmatic hernia without obstruction or gangrene; K25.7 Chronic gastric ulcer without hemorrhage or perforation; I10 Essential (primary) hypertension; R56.9 Unspecified convulsions; M19.90 Unspecified osteoarthritis, unspecified site; Z98.51 Tubal ligation status; Z90.49 Acquired absence of other specified parts of digestive tract; Z82.49 Family history of ischemic heart disease and other diseases of the circulatory system
CPT/HCPCS: 43239; 88305; J2704; J7120

== ENCOUNTER 2024-11-02 06:23 | Day surgery (SDC) | payer OTHER, SELFPAY ==
--- OUTSIDE RECORDS SUMMARY | 2003-06-06 03:45 | XMS_ITS | Continuity of Care Document ---
Author Organization [facility] Address [id number] [place] [address] [address] [place] [address] Phone Care Team Providers Care Talent Associate Name Role Phone Nida, Lemuel Unavailable Unavailable Advance Directives Directive Yes / No Effective Date File Name No Information Encounters Encounter Description Practice Location Reason(s) For Visit Diagnoses Date Provider Providers Copied on Encounter [facility], [address], [place], [place], [id number], [place] tel:[phone] [facility] No Information 4[address] Doisy Edward. [address] , [address], [place], [address], [place]. tel:[phone] Family History Family Member Type Diagnosis Age At Onset No Information Payers Payer name Insurance type Covered alliance party ID Authoriza tion(s) No Information Social History [...]
--- OUTSIDE RECORDS SUMMARY | 2019-08-14 09:00 | XMS_ITS | Continuity of Care Document ---
Author Organization [facility] Address [address] [place] [address] Phone Care Team Providers Care Building And Construction Manager Name Role Phone Marco Antonio Art MD, [...] on Encounter Independent Medical Examination [facility], [address], [id number], [place] tel:[phone] [facility] right knee (chief complaint) Pain in right knee 0 Rubens Bernard. [address], [id number] , [place]. tel: [phone] [facility], [address], [id number], [place] tel:[phone] [facility] No Information 0 Rubens Bernard. [address] [place] [address], [id number] , . tel:[phone] Family History Family Member Type Diagnosis Age At Onset Mother Problem (finding) Seizures Payers Payer name Insurance type Covered libertarian ID Kathie goodson(s) [employer] [id number] Social History Type Description Quantity Date Captured [...] knee pain. On 06/30/19, while working for [employer], she was outside and the knee twisted, [...] knee pain. On 06/30/19, while working for [employer], she was outside and the knee twisted, [...]
[2024-10-18 13:54] VITALS: BMI 27.2
[2024-11-02 06:44] VITALS: BP 151/84; PULSE 77; RESP 18; TEMP 36.2; O2SAT 100; BMI 27.2
[2024-11-02] MEDS: SIMETHICONE ORAL SUSPENSION 20 MG/0.3 ML 30 ML BOTTLE 1.8 ML PO (06:55)
--- NOTE | 2024-11-02 07:15 | P.PNAN_ITS ---
Anes - Initial Pre Proc Eval Procedure: Operation Date: 11/02/24 08:00 Proposed Procedures p Esophagogastroduodenoscopy - Stan Mayberry MD Date/Time: 11/02/24 07:15 Surgeon: Stan Mayberry MD Pre Op Diagnosis: Chronic gastric ulcer w/o hemorrhage or perforatio Patient Data Age: 74 Gender: F Height: 1.73 m Weight: 81.3 kg Last Vital Signs Temp 97.2 F L 11/02/24 06:44 Pulse 77 11/02/24 06:44 Resp 18 11/02/24 06:44 BP 151/84 H 11/02/24 06:44 Pulse Ox 100 11/02/24 06:44 O2 Del Method Room Air 11/02/24 06:44 Allergies Allergy/AdvReac Type Severity Reaction Status Date / Time aspirin Allergy Severe GI UPSET, Verified 11/02/24 06:43 STOMACH ULCERATION erythromycin base Allergy Severe SWELLING Verified 11/02/24 06:43 Penicillins Allergy Severe ANAPHALACTI Verified 11/02/24 06:43 C Sulfa (Sulfonamide Allergy Severe ANAPHALACTI Verified 11/02/24 06:43 Antibiotics) C tramadol Allergy Severe SWELLING Verified 11/02/24 06:43 dihydroergotamine Allergy Mild Anaphylaxis Verified 11/02/24 06:43 pentazocine (From Talwin) Allergy Mild Anaphylaxis Verified 11/02/24 06:43 promethazine Allergy Unknown Unknown Verified 11/02/24 06:43 acetaminophen (From Vicodin) Allergy Unknown Verified 11/02/24 06:43 chlorpromazine (From Allergy Unknown Verified 11/02/24 06:43 Thorazine) ibuprofen (From Motrin) Allergy Unknown Verified 11/02/24 06:43 ketorolac (From Toradol) Allergy Unknown Verified 11/02/24 06:43 metoclopramide (From Reglan) Allergy Unknown Verified 11/02/24 06:43 prochlorperazine (From Allergy Unknown Verified 11/02/24 06:43 Compazine) Beta-Blockers AdvReac Severe BP PROBLEMS Verified 11/02/24 06:43 (Beta-Adrenergic Bloc sumatriptan AdvReac Severe BP SPIKE Verified 11/02/24 06:43 Home Medications ?Medication ?Instructions ?Recorded ?Confirmed ?Type cyanocobalamin (vitamin B-12) 1,000 mcg PO DAILY #30 c aps 07/11/24 11/02/24 Rx 1,000 mcg capsule Patient hx anesthesia problems: none Family hx anesthesia problems: none Results Review: All pre-operative results and documents have been reviewed as part of the pre- operative evaluation. FORMERLY [facility] Past Medical History Medical History Osteoarthritis Essential (primary) hypertension Seizure no longer on meds Surgical History Surgical History History of right knee surgery (~08/2013) meniscus repair History of bilateral carpal tunnel release (~2007) History of shoulder surgery (~08/2011) bilateral Arthroscopic acromioplasty and Open distal clavicle excision. History of hysterectomy (~2018) History of tubal ligation (~1976) History of (~1976) History of cholecystectomy (~1969) History of appendectomy (~1969) Family History Family History Father Family history of premature coronary heart disease, Onset Age: 75 Patient's father is Alcohol abuse Mother Cerebrovascular accident, Onset Age: 75 Hypertension Social History Social History Smoking status: Never smoker Second hand tobacco smoke exposure: No Alcohol intake: never Substance use: never Substance use type: does not use Do You Feel Safe in your Home?: Yes Lack of Transportation: No Lack of Food: Never True Current Housing: I Have Housing Concerned About Future Housing: No Difficulty Paying Gas/Electric Bills: No Difficulty Paying for Meds: No Currently Unemployed: No Education: High School Diploma/GED Difficulty w/ Childcare or Family Care: No Living arrangements: with family Occupation/Education: occupation 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 Gender identity (if verbalized by the patient): Female Sexual Orientation (if Verbalized by the Patient): Straight or Heterosexual Spiritual care concerns: No Agree to blood products: Yes Anes - Eval Final PreProcedure Day of Procedure 11/02/24 07:15 Heart: regular rate and rhythm Lungs: clear to auscultation Airway: Mallampati scale class II Neurological: alert and oriented Last oral intake: >/= 8 hours ASA classification: II Anesthetic plan: proceed Anesthesia type and monitoring: monitored anesthesia care Results Review: All pre-operative results and documents have been reviewed as part of the pre- operative evaluation. Informed Consent: The patient's anesthetic plan and its attendant risks and benefits were discussed with the patient/family/POA. Questions were solicited and answers provided to the satisfaction of the patient/family/POA.
[2024-11-02 07:36] VITALS: BP 151/84; PULSE 77; RESP 18; TEMP 36.2; O2SAT 100
[2024-11-02] MEDS: LACTATED RINGERS 1,000 ML 150 ML IV CONT (07:37)
--- NOTE | 2024-11-02 08:00 | PM.IMHP ---
H&P: [facility] History of Present Illness Date/Time: 11/02/24 08:00 Chief Complaint: GERD Narrative: she was recently scoped finding severe erosive esophagitis and a medium-sized hiatal hernia. Started on omeprazole 40 mg b.i.d., but comes today stating that she has not improved much. Will perform a follow-up EGD today. Review of Systems Review of Systems: All systems reviewed & are unremarkable except as noted in HPI and below PMFSH Past Medical History Medical History Osteoarthritis Essential (primary) hypertension Seizure no longer on meds Surgical History Surgical History History of right knee surgery (~08/2013) meniscus repair History of bilateral carpal tunnel release (~2007) History of shoulder surgery (~08/2011) bilateral Arthroscopic acromioplasty and Open distal clavicle excision. History of hysterectomy (~2018) History of tubal ligation (~1976) History of (~1976) History of cholecystectomy (~1969) History of appendectomy (~1969) Family History Family History Father Family history of premature coronary heart disease, Onset Age: 75 Patient's father is Alcohol abuse Mother Cerebrovascular accident, Onset Age: 75 Hypertension Social History Social History Smoking status: Never smoker Second hand tobacco smoke exposure: No Alcohol intake: never Substance use: never Substance use type: does not use Do You Feel Safe in your Home?: Yes Lack of Transportation: No Lack of Food: Never True Current Housing: I Have Housing Concerned About Future Housing: No Difficulty Paying Gas/Electric Bills: No Difficulty Paying for Meds: No Currently Unemployed: No Education: High School Diploma/GED Difficulty w/ Childcare or Family Care: No Living arrangements: with family Occupation/Education: occupation 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 Gender identity (if verbalized by the patient): Female Sexual Orientation (if Verbalized by the Patient): Straight or Heterosexual Spiritual care concerns: No Agree to blood products: Yes Meds Home Medications and Allergies Home Medications ?Medication ?Instructions ?Recorded ?Confirmed ?Type cyanocobalamin (vitamin B-12) 1,000 mcg PO DAILY #30 caps 07/11/24 11/02/24 Rx 1,000 mcg capsule Allergies Allergy/AdvReac Type Severity Reaction Status Date / Time aspirin Allergy Severe GI UPSET, Verified 11/02/24 06:43 STOMACH ULCERATION erythromycin base Allergy Severe SWELLING Verified 11/02/24 06:43 Penicillins Allergy Severe ANAPHALACTI Verified 11/02/24 06:43 C Sulfa (Sulfonamide Allergy Severe ANAPHALACTI Verified 11/02/24 06:43 Antibiotics) C tramadol Allergy Severe SWELLING Verified 11/02/24 06:43 dihydroergotamine Allergy Mild Anaphylaxis Verified 11/02/24 06:43 pentazocine (From Talwin) Allergy Mild Anaphylaxis Verified 11/02/24 06:43 promethazine Allergy Unknown Unknown Verified 11/02/24 06:43 acetaminophen (From Vicodin) Allergy Unknown Verified 11/02/24 06:43 chlorpromazine (From Allergy Unknown Verified 11/02/24 06:43 Thorazine) ibuprofen (From Motrin) Allergy Unknown Verified 11/02/24 06:43 ketorolac (From Toradol) Allergy Unknown Verified 11/02/24 06:43 metoclopramide (From Reglan) Allergy Unknown Verified 11/02/24 06:43 prochlorperazine (From Allergy Unknown Verified 11/02/24 06:43 Compazine) Beta-Blockers AdvReac Severe BP PROBLEMS Verified 11/02/24 06:43 (Beta-Adrenergic Bloc sumatriptan AdvReac Severe BP SPIKE Verified 11/02/24 06:43 Vital Signs Vital Signs - 24 hr 11/02/24 06:44 11/02/24 07:36 Temperature 97.2 F L 97.2 F L Pulse Rate 77 77 Respiratory Rate 18 18 Blood Pressure 151/84 H 151/84 H Pulse Oximetry 100 100 Oxygen Delivery Room Air Room Air Exam Const: General: cooperative and healthy appearing Resp: Effort & Inspection: normal respiratory effort and able to speak in complete sentences Auscultation: clear to auscultation bilaterally Cardio: Rate: regular rate Rhythm: regular rhythm GI: Inspection: normal to inspection GI Palp: No No hepatosplenomegaly present Auscultation: normal bowel sounds Rectal Exam: deferred Skin: General skin exam: normal color Psych: Appearance: grossly normal Mental Status: mental status grossly normal Assessment and Plan Assessment and plan (1) Erosive esophagitis: Code(s): K22.10 - Ulcer of esophagus without bleeding Status: Acute Assessment and Plan: The patient is deemed a good candidate for the procedure. Consent signed. Will proceed.
--- NOTE | 2024-11-02 08:11 | WPDANESPN ---
Anes - Prog Note Post-Op Date/Time: 11/02/24 08:11 Vital Signs: Last Vital Signs Temp 97.2 F L 11/02/24 07:36 Pulse 77 11/02/24 07:36 Resp 18 11/02/24 07:36 BP 151/84 H 11/02/24 07:36 Pulse Ox 100 11/02/24 07:36 O2 Del Method Room Air 11/02/24 07:36 Pain Score (VAS): no Patient Feedback: Patient satisfied with anesthetic care.
[2024-11-02 08:24] VITALS: BP 134/73; PULSE 79; RESP 14; O2SAT 100
[2024-11-02 08:34] VITALS: BP 159/86; PULSE 66; RESP 16; O2SAT 100
[2024-11-02 08:44] VITALS: BP 159/94; PULSE 62; RESP 16; O2SAT 100
== END 2024-11-02 08:55 | disposition home or self-care (01) ==
PROVIDERS: PCP Family Medicine; Referring Provider Internal Medicine Gastroenterology; Visit Provider Internal Medicine Gastroenterology
PROC: 0DJ08ZZ Inspection of Upper Intestinal Tract, Via Natural or Artificial Opening Endoscopic (ICD-10-PCS; principal; 2024-11-02 08:00)
DX: K21.00 Gastro-esophageal reflux disease with esophagitis, without bleeding (principal); K22.2 Esophageal obstruction; K29.30 Chronic superficial gastritis without bleeding; K44.9 Diaphragmatic hernia without obstruction or gangrene
CPT/HCPCS: 43249

== ENCOUNTER 2024-11-24 09:33 | Outpatient (CLI) | payer OTHER, SELFPAY ==
--- NOTE | ~2024-11-24 | XR_ITS ---
EXAMINATION: XR ribs RT 2V, 11/24/2024 9:42 CDT HISTORY: W19.XXXA - Unspecified fall, initial encounter COMPARISON: No comparisons available. Findings: No acute fracture or malalignment. No significant degenerative changes. Soft tissues unremarkable. Impression: No acute fracture or malalignment. Reviewed, dictated and finalized at location P. Impression: No acute fracture or malalignment.
== END 2024-11-24 09:34 | disposition home or self-care (01) ==
LOC: MICIMG 09:35
PROVIDERS: PCP Family Medicine; Visit Provider Nurse Practitioner Family
DX: R07.89 Other chest pain (principal); W19.XXXA Unspecified fall, initial encounter
CPT/HCPCS: 71100

== ENCOUNTER 2024-12-28 07:33 | Emergency (ER) | payer OTHER, SELFPAY ==
--- OUTSIDE RECORDS SUMMARY | 2003-06-06 02:45 | XMS_ITS | Continuity of Care Document ---
Author Organization [facility] Address [id number] [place] [address] [address] [place] [address] Phone Care Team Providers Care Dope And Fabric Worker Name Role Phone Nida, Lemuel Unavailable Unavailable Advance Directives Directive Yes / No Effective Date File Name No Information Encounters Encounter Description Practice Location Reason(s) For Visit Diagnoses Date Provider Providers Copied on Encounter [facility], [address], [place], [place], [id number], [place] tel:[phone] [facility] No Information 4-[address] Doisy Edward. [address] , [address], [place], [address], [place]. tel:[phone] Family History Family Member Type Diagnosis Age At Onset No Information Payers Payer name Insurance type Covered libertarian ID Authoriza tion(s) No Information Social History Type Description Quantity Date Captured Comments Sex Female Smoking Status No Information Chief Complaint And Reason For Visit No Information Reason For Referral Reason For Referral No Information History Of Present Illness Encounter Date Complaint History Of Prese nt Illness No Information Functional Status Date Functional Assessmen t No Information Instructions Date Instruction Additional Infor mation No Information Assessments Type Assessment Date No Information Patient Care Teams Name Effective Dates (start - stop) Status Members No Information
--- OUTSIDE RECORDS SUMMARY | 2019-08-14 08:00 | XMS_ITS | Continuity of Care Document ---
Author Organization [facility] Address [address] [place] [address] Phone Care Team Providers Care Finishing Lab Technician Name Role Phone Marco Antonio Art MD, MD Unavailable Unavailable Allergies, Adverse Reactions, Alerts Substance Reaction Status Criticality Sulfa (Sulfonamide Antibiotics) DifficultyBreathing Ac tive No Information Penicillins DifficultyBreathing Active No Infor mation phenytoin DifficultyBreathing Active No Infor mation aspirin DifficultyBreathing Active No Infor mation Procedures Procedure Date X-ray exam knee, 1 or 2 views 0 X-ray exam both knees, standing 020 Independent Medical Examination LORENE Pre Payment Advance Directives Directive Yes / No Effective Date File Name No Information Encounters Encounter Description Practice Location Reason(s) For Visit Diagnoses Date Provider Providers Copied on Encounter Independent Medical Examination [facility], [address], [id number], [place] tel:[phone] [facility] right knee (chief complaint) Pain in right knee 0 Rubens Bernard. [address], [id number] , [place]. tel: [phone] [facility], [address], [id number], [place] tel:[phone] [facility] No Information 0 Rubens Bernard. [address] [place] [address], [id number] , . tel:[phone] Family History Family Member Type Diagnosis Age At Onset Mother Problem (finding) Seizures Payers Payer name Insurance type Covered republican ID Kathie goodson(s) Seer [id number] Social History Type Description Quantity Date Captured Comments Alcohol Use Details Unknown Caffeine Use Details Unknown Tobacco Use Status No Information Smoking Status Never smoker Non-Smoking Tobacco Use Details : No Details Available : No Details Available Sex Female Vital Signs Date / Time: Height Weight BMI Pulse Rate Blood Pressure Temperature Respiratory Rate Body Surface Area Head Circumference Head Circ. Percentile Wt./Abdon. Percentile BMI percentile Pulse Ox Inhaled Ox 1:52 PM 68.00 in 72.575 kg (160.00 lbs) 24.3 3 kg/m eter (2) Chief Complaint And Reason For Visit From encounter dated '08/14/2019 14:00'. right knee (chief complaint). Description: Ranjana presents to the office with medial and lateral right knee pain. On 06/30/19, while working for [employer], she was outside and the knee twisted, causing it to pop. Ranjana states she did have an MRI which shows a tear. She rates the pain 9/10 with itbeing sharp and stabbing. She is experiencing burning, decreased ROM, difficulty falling asleep, giving way, limping, locking. Bending, climbing and descending stairs, standing, and walking aggravates the pain, while wearing a brace and rest helps with the pain. We will obtain x-rays. Reason For Referral Reason For Referral No Information Plan Of Treatment Date Type Action Status Referral Ordered: X-ray exam knee, 1 or 2 views RT knee ordered Referral Ordered: X-ray exam both knees, standing ordered History Of Present Illness Encounter Date Complaint History Of Prese nt Illness right knee Ranjana presents to the office with medial and lateral right knee pain. On 06/30/19, while working for [employer], she was outside and the knee twisted, causing it to pop. Ranjana states she did have an MRI which shows a tear. She rates the pain 9/10 with it being sharp and stabbing. She is experiencing burning, decreased ROM, difficulty falling asleep, giving way, limping, locking. Bending, climbing and descending stairs, standing, and walking aggravates the pain, while wearing a brace and rest helps with the pain. We will obtain x-rays. Functional Status Date Functional Assessmen t No Information Instructions Date Instruction Additional Infor mation No Information Assessments Type Assessment Date assessment Pain in right knee Patient Care Teams Name Effective Dates (start - stop) Status Members No Information
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
[2024-12-28 07:26] VITALS: BP 176/103; PULSE 81; RESP 14; O2SAT 100
--- NOTE | 2024-12-28 09:12 | ECG_ITS ---
Test Date: 2024-12-28 09:32:22 Measurements Intervals [place] Rate: 73 P: 31 AL: 160 QRS: -5 QRSD: 94 T: 16 QT: 383 QTc: 423 Interpretive Statements SINUS RHYTHM LOW QRS VOLTAGE IN PRECORDIAL LEADS [QRS DEFLECTION < 1.0 mV IN CHEST LEADS] POSSIBLE INFERIOR MYOCARDIAL INFARCTION , OF INDETERMINATE AGE [30 ms Q WAVE IN II/aVF] Compared to ECG 06/15/2024 07:51:48 No significant changes Electronically Signed On 12-28-2024 11:29:13 FIRE CONTROL OFFICER by Rupert Morris M.D.
[2024-12-28 09:36] LABS: Hematocrit 42.5 % (37.0-47.0); Hemoglobin 13.7 g/dL (12.0-15.0); Immature Granulocyte Percent A 0.3 % (0-0.5); Lymphocytes Absolute Auto 1.27 K/mm3 (0.9-3.2); Mean Corpuscular HGB Conc 32.2 g/dl (32-36); Mean Corpuscular Hemoglobin 31.2 pg (26-34); Mean Corpuscular Volume 96.8 fl (80-100); Nucleated Red Blood Cells Absolute Auto 0.000 K/mm3 (0.0-0.012); Nucleated Red Blood Cells Perc 0.0 % (0.0-0.2); Platelet Count Result 270 k/mm3 (150-375); Red Blood Count 4.39 M/mm3 (4.2-5.4); White Blood Count 7.5 K/mm3 (4.5-10.0)
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
[2024-12-28 09:52] VITALS: BP 166/104; PULSE 86; RESP 14; O2SAT 100
[2024-12-28] MEDS: ONDANSETRON INJ 4 MG/2 ML VIAL IV PUSH (09:57)
[2024-12-28] MEDS: MORPHINE SULFATE (*CRX) 4 MG/ML INJ IV PUSH (09:57)
[2024-12-28 09:59] LABS: Alanine Aminotransferase 17 U/L (6-35); Albumin Level 4.3 g/dL (3.5-5.1); Alkaline Phosphatase 92 U/L (38-126); Anion Gap 10 mmol/L (4-12); Aspartate Amino Transferase 23 U/L (14-36); Bilirubin,Total 0.5 mg/dL (0.2-1.3); Blood Urea Nitrogen 17 mg/dL (7-17); Calcium 9.1 mg/dL (8.4-10.2); Carbon Dioxide 22 mmol/L (22-30); Chloride 106 mmol/L (98-107); Estimated CRCL calculation 66 ml/min; Estimated Glomerular Filt Rate > 60; Glucose 102 mg/dL (65-110); Potassium 4.1 mmol/L (3.4-5.0); Sodium 138 mmol/L (137-145); Total Protein 7.8 g/dL (6.3-8.2)
[2024-12-28 13:16] VITALS: BP 159/94; PULSE 73; RESP 16; O2SAT 100
--- OUTSIDE RECORDS SUMMARY | 2024-12-28 17:59 | XMS_ITS | Clinical Summary ---
Author Organization [place] [address] [facility] Address [address] [place] [id number] Care Team Providers Care Supervisor Photocomposition Name Role Phone Alberta Everett Primary Care Provider [phone] Allergies Active Allergy Reactions Criticality Noted Date [...] 04/16/2021 Assessment & Plan (04/16/2021 2:10 PM WIRE CHIEF): Patient declines the advised covid test at this time. She will increase fluids, use tylenol 500mg q6h prn fever/headache. She will report to the office if symptoms are not improving or if they worsen over the coming 72h. TMJ (temporomandibular joint disorder) Assessment & Plan (01/23/2021 2:35 PM WIRE CHIEF): Patient cannot take nsaids. Will try mdp for assistance. We discussed referral to ent/dentist pending response. She does not having funding for dentures, which we discussed would benefit her condition. Otalgia, left 01/09/2021 Assessment & Plan (01/23/2021 2:35 PM WIRE CHIEF): We discussed this is likely secondary to TMJ. Discussed ENT referral if no improvement in symptoms. Assessment & Plan (01/09/2021 8:17 AM WIRE CHIEF): Start on doxycycline x 10 days Advised [...] 120-130/80s. Assessment & Plan (01/23/2021 2:35 PM WIRE CHIEF): Add hctz daily Advised goal 120-130/80 Advised [...] with xrays. She plans to go to [facility] in [place]. Start PT. She can schedule now and then will need to let the office know where so an [facility] referral can be sent. Provided names of locations in [place] per her request. Tylenol or prn NSAIDs. [...] improving and sooner if worsening Will retrieve [facility] records for review She declines xray/ct [...] 07/03/2020 Assessment & Plan (01/23/2021 2:36 PM WIRE CHIEF): Weight/bmi in healthy range Assessment & Plan [...] is going to schedule appt with her automotive glazier. 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 [employer] Not on file Not on file Not on file Last Filed Vital Signs Vital Sign Reading Time Taken Comments Blood Pressure 132/96 09/29/2021 1:57 PM CDT Pulse 85 09/29/2021 1:57 PM CDT Temperature 36.8 C (98.2 F) 09/29/2021 1:57 PM CDT Respiratory Rate 18 01/23/2021 8:52 AM WIRE CHIEF Oxygen Saturation 98% 09/29/2021 1:57 PM CDT Inhaled Oxygen Concentration - - Weight 81.6 kg (180 lb) 09/29/2021 1:57 PM CDT Height 170.2 cm (5' 7) 09/29/2021 1:57 PM CDT Body Mass Index 28.19 09/29/2021 1:57 PM CDT Plan of Treatment Not on [place] [address] [facility] [place] [address] Care Teams Supervisor Photocomposition Relationship Specialty Start Date End Date Alberta Everett PA PCP - General Medical Physicist 06/06/20
== END 2024-12-28 13:19 | disposition home or self-care (01) ==
PROVIDERS: Emergency Provider Physician Assistant; PCP Family Medicine
DX: S16.1XXA Strain of muscle, fascia and tendon at neck level, initial encounter (principal); I10 Essential (primary) hypertension; M19.90 Unspecified osteoarthritis, unspecified site; Z90.710 Acquired absence of both cervix and uterus; Z90.49 Acquired absence of other specified parts of digestive tract; V44.5XXA Car driver injured in collision with heavy transport vehicle or bus in traffic accident, initial encounter; R94.31 Abnormal electrocardiogram [ECG] [EKG]
CPT/HCPCS: 36415; 70450; 71260; 72125; 73030; 74177; 80053; 85025; 93005; 96374; 96375; 99284; J2270; J2405; Q9967